=== PATIENT | female | born 1940 | race Caucasian/White ===

== ENCOUNTER 2019-04-11 12:35 | Outpatient (RCR) | payer MEDICARE, SELFPAY | END 2019-04-28 23:59 | disposition home or self-care (01) | LOC: CR 12:35 | PROVIDERS: Family Provider Family Medicine; PCP Family Medicine; Referring Provider Internal Medicine Cardiovascular Disease; Visit Provider Family Medicine | DX: I35.0 Nonrheumatic aortic (valve) stenosis (principal) | CPT/HCPCS: 93798 ==

== ENCOUNTER 2019-04-29 | Outpatient (RCR) | payer MEDICARE, SELFPAY | END 2019-05-27 17:00 | disposition home or self-care (01) | LOC: CR | PROVIDERS: Family Provider Family Medicine; PCP Family Medicine; Visit Provider Family Medicine | DX: I35.0 Nonrheumatic aortic (valve) stenosis (principal) | CPT/HCPCS: 93798 ==

== ENCOUNTER 2019-05-11 12:21 | Outpatient (CLI) | payer MEDICARE, SELFPAY ==
--- NOTE | 2019-05-11 12:45 | USCV_ITS ---
Olinda Zamora Age: 78 Gender: F : 1940 Exam Date: 05/11/2019 12:38 Ordering Phys: Sushil Springer DO Technologist: Dara St [place] [facility] [place]: [place] Risk Factors: None Previous Vascular Surgery: None Right Brachial BP: / Left Brachial BP: / Right Left Velocity (cm/s) Spectral Plaque Velocity (cm/s) Spectral Plaque Syst/Diast Broadening Syst/Diast Broadening 47.30/ 9.20 Prox CCA 51.90 / 9.90 73.50/ 17.10 Mid CCA 37.50 / 7.90 69.20/ 13.70 Distal CCA 33.50 / 6.60 64.10/ 12.00 Prox ICA 26.80 / 8.90 70.90/ 15.40 Mid ICA 30.70 / 9.30 54.70/ 17.90 Distal ICA 70.90 / 23.10 78.60 ECA 53.90 0.97 ICA/CCA 1.37 Antegrade Vertebral Antegrade 59.80/ 15.40 cm/s 38.10/ 8.50 cm/s Tri Subclavian Tri 110.3 106.3 0 0 FINDINGS Mild to moderate diffuse plaques of the right bifurcation and internal carotid artery. Minimal plaques at the left bifurcation Intimal thickening and minimal plaques in the common carotid arteries bilaterally Antegrade flow in the vertebral arteries bilaterally Normal Doppler flow velocities in the external carotid arteries bilaterally CONCLUSIONS Mild to moderate diffuse plaques of the right bifurcation and internal carotid artery. Minimal plaques at the left bifurcation and internal carotid artery No significant stenosis, based on the above findings Dr Abdelrahman Rogel MD FAC (Electronically Signed) Final Date: 11 May 2019 20:15 S
== END 2019-05-11 12:22 | disposition home or self-care (01) ==
LOC: US 12:23
PROVIDERS: Family Provider Family Medicine; PCP Family Medicine; Visit Provider Family Medicine
DX: R42 Dizziness and giddiness (principal); I10 Essential (primary) hypertension; I65.21 Occlusion and stenosis of right carotid artery
CPT/HCPCS: 93880

== ENCOUNTER 2019-06-01 12:40 | Outpatient (RCR) | payer MEDICARE, SELFPAY | END 2019-06-27 23:59 | disposition home or self-care (01) | LOC: CR 12:40 | PROVIDERS: Family Provider Family Medicine; PCP Family Medicine; Referring Provider Internal Medicine Cardiovascular Disease; Visit Provider Family Medicine | DX: I47.1 Supraventricular tachycardia (principal) | CPT/HCPCS: 93798 ==

== ENCOUNTER 2019-08-15 17:33 | Emergency (ER) | payer MEDICARE, SELFPAY ==
[2019-08-15 17:45] VITALS: BP 129/73; PULSE 90; RESP 14; TEMP 36.6; O2SAT 96; BMI 26.4
--- NOTE | 2019-08-15 18:11 | CTR_ITS ---
PROCEDURE INFORMATION: Exam: CT Abdomen And Pelvis With Contrast Exam date and time: 08/15/2019 6:58 PM Age: 78 years old Clinical indication: Abdominal pain; Localized; Right lower quadrant (rlq); Prior surgery; Surgery type: Hysto, gb; Additional info: Abd pain TECHNIQUE: Imaging protocol: Computed tomography of the abdomen and pelvis with intravenous contrast. Radiation optimization: All CT scans at this facility use at least one of these dose optimization techniques: automated exposure control; mA and/or kV adjustment per patient size (includes targeted exams where dose is matched to clinical indication); or iterative reconstruction. Contrast material: OMNI 300; Contrast volume: 95 ml; Contrast route: IV; COMPARISON: CT abdomen pelvis w con* [id number] 12/05/2018 8:09 AM RADIATION DOSE METRICS: Total DLP: 656.36 mGy-cm FINDINGS: Lungs: Mild atelectasis. Liver: Subcentimeter low-density in the tip of the right liver lobe is too small to characterize. Gallbladder and bile ducts: Cholecystectomy. Mild prominence of the intrahepatic and extrahepatic bile ducts is most likely reservoir effect. Pancreas: Normal. No ductal dilation. Spleen: Normal. No splenomegaly. Adrenals: Normal. No mass. Kidneys and ureters: Normal. No hydronephrosis. Stomach and bowel: Diverticulosis of the transverse through sigmoid colon without diverticulitis. The stomach and small bowel are unremarkable. There is a focal region of mesenteric fat stranding along the lateral border of the cecum. Mild asymmetric wall thickening along the adjacent right lateral margin of the cecum. Appendix: The appendix is not visualized. Intraperitoneal space: Unremarkable. No free air. No significant fluid collection. Vasculature: Unremarkable. No abdominal aortic aneurysm. Lymph nodes: Hazy ground-glass opacity in the central mesenteric fat with multiple subcentimeter mesenteric lymph nodes. Bladder: Unremarkable as visualized. Reproductive: The uterus and ovaries are absent. Bones/joints: Unremarkable. No acute fracture. Soft tissues: Unremarkable. CT/CT abdomen pelvis w con* [id number] IMPRESSION: 1. Mild fat stranding adjacent to the cecum with mild wall thickening of the lateral cecum. This could represent focal colitis or possibly diverticulitis. The appendix is not visualized and this is unlikely to represent acute appendicitis. Follow-up colonoscopy is recommended. 2. Stable chronic mesenteric adenitis. Radiation Dose CTDIVOL = (mGy): DLP = 656.36 (mGy-cm)
--- NOTE | 2019-08-15 18:16 | W.ED.ABDPA2 ---
HPI - Abdominal Pain General: Chief Complaint: Abdominal Pain Stated Complaint: abd pain Time Seen by Provider: 08/15/19 17:54 Source: patient Mode of arrival: ambulatory Limitations: no limitations History of Present Illness: HPI narrative: 78-year-old female whose had right lower abdominal pain over the last day. States pain is very sharp in nature and rates it a 6 out of 10. Denies any vomiting but has had some nausea. Denies fever. MD elicited complaint: abdominal pain Onset (ago): hour(s) Location: RLQ Severity: moderate Quality: sharp Radiation: RLQ Migration to: no migration Exacerbating factors: nothing Relieving factors: nothing Associated Symptoms: Reports nausea; Denies chills, dysuria and fever(s) Review of Systems Const: Denies: fever(s), chills, body aches or change in appetite Eyes: Denies: blurry vision or eye discomfort ENMT: Denies: throat pain or dental pain Card: Denies: chest pain Resp: Denies: dyspnea GI: Reports: abdominal pain and nausea : Denies: dysuria Musc: Denies: neck pain or back pain Skin/Breast: Denies: rash Neuro: Denies: headache(s) Psych: Denies: depression Jose/Lymph: Denies: easy bruising All/Imm: Denies: urticaria PFSH ED PFSH: Medical History Aortic stenosis history of AVR at [facility] 02/28/19 CAD (coronary artery disease) Diverticulosis Gastritis GERD (gastroesophageal reflux disease) HTN (hypertension) UTI (urinary tract infection) Family History Father Cancer Social History Smoking and tobacco status: never smoked Alcohol intake: never Household members: spouse Physical Exam Const: COMMON NORMALS: no acute distress, patient oriented x3 and healthy appearing HENMT: COMMON NORMALS: normocephalic and atraumatic HEAD & SCALP: normocephalic and atraumatic Eye: COMMON NORMALS: Equal, round and reactive pupils present and EOMs intact bilaterally PUPIL: Yes Equal, round and reactive pupils present Neck/C-Spine: COMMON NORMALS: full ROM and supple Chest: COMMONS NORMALS: normal inspection of the chest and normal palpation of entire chest wall Resp: COMMON NORMALS: normal respiratory effort, No retractions, No use of accessory muscles and clear to auscultation bilaterally AUSCULTATION: clear to auscultation bilaterally Cardio: COMMON NORMALS: regular rate, regular rhythm and No murmurs present (Cardio) RATE: regular rate RHYTHM: regular rhythm GI: COMMON NORMALS: Normal to inspection, nondistended, normoactive bowel sounds present, Soft to palpation and no masses PALPATION: Yes Soft to palpation and Yes Tenderness to palpation present (GI) Details: RLQ Extremity: COMMON NORMALS: normal to inspection and full ROM Neuro: COMMON NORMALS: patient oriented x3, moves all extremities and no focal motor deficits Psych: COMMON NORMALS: mental status grossly normal, Normal thought process present and cooperative THOUGHT PROCESS: Normal thought process present Skin: COMMON NORMALS: no rashes or lesions noted and no wounds GENERAL SKIN EXAM: no rashes or lesions noted Course Vital Signs: Vital signs: Vital Signs Temperature 97.9 F 08/15/19 17:45 Pulse Rate 90 08/15/19 17:45 Respiratory Rate 15 08/15/19 18:45 Blood Pressure 129/73 08/15/19 17:45 Pulse Oximetry 96 08/15/19 17:45 MDM - Abdominal Pain MDM Narrative: Medical decision making narrative: Patient presents with abdominal pain and CT showed colitis versus diverticulitis. No signs appendicitis. Patient's vital signs and blood work here is normal and she does not have an elevated white count. Her pain is improved and will start her on Augmentin along with pain meds for home. She is to follow-up with her primary care doctor in 3 to 5 days return to the ER if her pain worsens or she has a fever. She understands and agrees the plan. Lab Data: Labs: Lab Results 08/15/19 08/15/19 08/15/19 Range/Units 18:28 18:28 19:20 WBC 6.9 (4.0-10.0) 10^3/ uL RBC 4.85 (4.1-5.3) 10^6/u L Hgb 14.3 (11.5-15.3) g/dL Hct 43.6 (37.0-47.0) % MCV 89.9 (81-99) fL MCH 29.5 (28.0-34.0) pg MCHC 32.8 (30.0-36.0) g/dL RDW 14.6 (12.1-15.1) % Plt Count 312 (130-400) 10^3/c mm MPV 9.3 (7.4-10.4) fL Neut % (Auto) 59.3 % Lymph % (Auto) 27.1 % [place] % (Auto) 10.5 % Eos % (Auto) 1.7 % Baso % (Auto) 1.3 % Neut # (Auto) 4.1 (1.8-7.7) 10^3/u L Lymph # (Auto) 1.9 (0.8-4.8) 10^3/u L [place] # (Auto) 0.7 (0.2-0.9) 10^3/u L Eos # (Auto) 0.1 (0.0-0.8) 10^3/u L Baso # (Auto) 0.1 (0.0-0.1) 10^3/u L Nucleated RBC % (a uto) 0 % Nucleated RBCs # 0.0 /100WBC Sodium 142 (136-145) mmol/L Potassium 4.3 (3.5-5.1) mmol/L Chloride 104 (98-107) mmol/L Carbon Dioxide 25 (22-29) mmol/L Anion Gap 17.3 (5-19) BUN 13 (8-23) mg/dL Creatinine 0.8 (0.5-0.9) mg/dL Glucose 115 (65-115) mg/dL Calculated Osmolal ity 291 (285-295) mOsm/k g Calcium 9.2 (8.5-10.5) mg/dL Total Bilirubin 0.2 (0.15-1.2) mg/dL AST 19 (0-32) U/L ALT 14 (0-33) U/L Alkaline Phosphata se 111 H (35-105) IU/L Total Protein 7.3 (6.6-8.7) g/dL Albumin 4.7 (3.5-5.2) g/dL Globulin 2.6 (1.3-4.6) g/dL Lipase 44 (13-60) U/L Urine Color Yellow (Yellow) Urine Appearance Clear (CLEAR) Urine pH 7 (5-7) Ur Specific Gravit y 1.005 (1.005-1.030) Urine Protein Neg (Negative) Urine Glucose (UA) Norm (Normal) Urine Ketones Negative (Negative) Urine Blood Neg (Negative) Urine Nitrate Negative (Negative) Urine Bilirubin Neg (NEGATIVE) Urine Urobilinogen Norm (Negative) mg/dL Ur Leukocyte Elizabeth ase 1+ H (Negative) Urine RBC None (0-2) /hpf Urine WBC 0-4 H (0-5) /hpf Ur Squamous Epith Cells 0-4 H (0-5) Ur Transition Epit h Cell 0-4 /hpf Urine Bacteria Trace (NONE) Imaging Data ^: CT Abd/Pel: Attestation: I personally reviewed and interpreted this imaging study as follows: Radiologist's impression: [place] [address] CT Scan Report Signed Patient: Olinda Zamora Unit #: [id number] : 1940 Age/Sex: 78 / F ADM Date: 08/15/19 Loc: ER Room/Bed: Attending Dr: Ordering Provider/Ordering MD: Juan Jose Ambrose MD Date of Service: 08/15/19 Procedure(s): CT abdomen pelvis w con* [id number] Accession Number(s): [id number] Report Number: [id number] PROCEDURE INFORMATION: Exam: CT Abdomen And Pelvis With Contrast Exam date and time: 08/15/2019 6:58 PM Age: 78 years old Clinical indication: Abdominal pain; Localized; Right lower quadrant (rlq); Prior surgery; Surgery type: Hysto, gb; Additional info: Abd pain TECHNIQUE: Imaging protocol: Computed tomography of the abdomen and pelvis with intravenous contrast. Radiation optimization: All CT scans at this facility use at least one of these dose optimization techniques: automated exposure control; mA and/or kV adjustment per patient size (includes targeted exams where dose is matched to clinical indication); or iterative reconstruction. Contrast material: OMNI 300; Contrast volume: 95 ml; Contrast route: IV; COMPARISON: CT abdomen pelvis w con* [id number] 12/05/2018 8:09 AM RADIATION DOSE METRICS: Total DLP: 656.36 mGy-cm FINDINGS: Lungs: Mild atelectasis. Liver: Subcentimeter low-density in the tip of the right liver lobe is too small to characterize. Gallbladder and bile ducts: Cholecystectomy. Mild prominence of the intrahepatic and extrahepatic bile ducts is most likely reservoir effect. Pancreas: Normal. No ductal dilation. Spleen: Normal. No splenomegaly. Adrenals: Normal. No mass. Kidneys and ureters: Normal. No hydronephrosis. Stomach and bowel: Diverticulosis of the transverse through sigmoid colon without diverticulitis. The stomach and small bowel are unremarkable. There is a focal region of mesenteric fat stranding along the lateral border of the cecum. Mild asymmetric wall thickening along the adjacent right lateral margin of the cecum. Appendix: The appendix is not visualized. Intraperitoneal space: Unremarkable. No free air. No significant fluid collection. Vasculature: Unremarkable. No abdominal aortic aneurysm. Lymph nodes: Hazy ground-glass opacity in the central mesenteric fat with multiple subcentimeter mesenteric lymph nodes. Bladder: Unremarkable as visualized. Reproductive: The uterus and ovaries are absent. Bones/joints: Unremarkable. No acute fracture. Soft tissues: Unremarkable. CT/CT abdomen pelvis w con* [id number] IMPRESSION: 1. Mild fat stranding adjacent to the cecum with mild wall thickening of the lateral cecum. This could represent focal colitis or possibly diverticulitis. The appendix is not visualized and this is unlikely to represent acute appendicitis. Follow-up colonoscopy is recommended. 2. Stable chronic mesenteric adenitis. Discharge Plan Discharge Patient Disposition: Home, Self-Care Clinical Impression: Diverticulitis Abdominal pain Qualifiers: Abdominal location: right lower quadrant Qualified Code(s): R10.31 - Right lower quadrant pain Condition: Stable Prescriptions: [place] 5-325 mg tablet 1 tab PO Q6H PRN (Reason: pain) Qty: 14 RF: 0 Zofran 4 mg tablet 4 mg PO QID PRN (Reason: nausea and vomiting) Qty: 14 RF: 0 Augmentin 875-125 mg tablet 1 tab PO BID Qty: 14 RF: 0 No Action aspirin [Adult Low Dose Aspirin] 81 mg tablet,delayed release (DR/EC) 81 mg PO DAILY RF: 0 docusate sodium [Colace] 100 mg capsule 100 mg PO DAILY PRN (Reason: CONSTIPATON) RF: 0 clonidine HCl 0.1 mg tablet 0.05 mg PO TID PRN (Reason: UNKNOWN) RF: 0 omega-3 fatty acids [Fish Oil Concentrate] 1,000 mg capsule 1,000 mg PO BID RF: 0 coenzyme Q10 100 mg capsule 100 mg PO DAILY RF: 0 amlodipine 5 mg tablet 10 mg PO DAILY RF: 0 multivitamin [Daily Multi-Vitamin] Tablet 1 tab PO DAILY RF: 0 Tylenol 325 mg Tablet 325 mg PO QID PRN (Reason: Pain) RF: 0 losartan 100 mg tablet 100 mg PO DAILY RF: 0 Discharge Orders: Discharge Order (Routine); Ordered 08/15/19 Ordered By: Juan Jose Ambrose Referrals: Sushil Springer DO [Primary Care Provider] - 1-3 days Discharge Diet: Advance as tolerated Discharge Activity: Resume usual activity Patient Instructions: Diverticulitis (ED), Abdominal Pain (ED) Coding Level of Care Code ED Door Manager for Brett Fwliz Exam Comprehensive
[2019-08-15 18:41] LABS: Basophils # 0.1 10^3/uL (0.0-0.1); Basophils % 1.3 %; Eosinophils # 0.1 10^3/uL (0.0-0.8); Eosinophils % 1.7 %; Hematocrit 43.6 % (37.0-47.0); Hemoglobin 14.3 g/dL (11.5-15.3); Lymphocytes # 1.9 10^3/uL (0.8-4.8); Lymphocytes % 27.1 %; Mean Corpuscular HGB Conc 32.8 g/dL (30.0-36.0); Mean Corpuscular Hemoglobin 29.5 pg (28.0-34.0); Mean Corpuscular Volume 89.9 fL (81-99); Mean Platelet Volume 9.3 fL (7.4-10.4); Monocytes # 0.7 10^3/uL (0.2-0.9); Monocytes % 10.5 %; Neutrophils # 4.1 10^3/uL (1.8-7.7); Neutrophils % 59.3 %; Nucleated Red Blood Cells % 0 %; Platelet Count 312 10^3/cmm (130-400); Red Blood Count 4.85 10^6/uL (4.1-5.3); Red Cell Distribution Width 14.6 % (12.1-15.1); White Blood Count 6.9 10^3/uL (4.0-10.0)
[2019-08-15 18:45] VITALS: RESP 15
[2019-08-15] MEDS: ondansetron 2 mg/ML SDV 2 mL 4 MG IVP (18:45)
[2019-08-15] MEDS: morphine 4 mg/mL SDV 1 mL IVP (18:45)
[2019-08-15] MEDS: sodium chloride 0.9% 1,000 ML 999 ML IV (18:46)
[2019-08-15 18:57] LABS: Alanine Aminotransferase 14 U/L (0-33); Albumin Level 4.7 g/dL (3.5-5.2); Alkaline Phosphatase 111 IU/L (35-105); Anion Gap 17.3 (5-19); Aspartate Amino Transferase 19 U/L (0-32); Blood Urea Nitrogen 13 mg/dL (8-23); Calcium 9.2 mg/dL (8.5-10.5); Carbon Dioxide 25 mmol/L (22-29); Chloride 104 mmol/L (98-107); Globulin 2.6 g/dL (1.3-4.6); Glucose 115 mg/dL (65-115); Lipase 44 U/L (13-60); Osmolality Calculated 291 mOsm/kg (285-295); Potassium 4.3 mmol/L (3.5-5.1); Sodium 142 mmol/L (136-145); Total Bilirubin 0.2 mg/dL (0.15-1.2); Total Protein 7.3 g/dL (6.6-8.7)
[2019-08-15] MEDS: iohexol 300 mg/mL 100 mL Btl IV (19:42)
[2019-08-15 19:52] LABS: Add Urine Microscopic? YES; Bilirubin Urine Neg (NEGATIVE); Blood Urine Neg (Negative); Glucose Urine UA Norm (Normal); Ketones Urine Negative (Negative); Leukocyte Esterase Urine 1+ (Negative); Nitrate Urine Negative (Negative); Protein Urine Neg (Negative); Specific Gravity, Urine 1.005 (1.005-1.030); Urine Appearance Clear (CLEAR); Urine Color Yellow (Yellow); Urobilinogen Urine Norm (Negative); pH Urine 7 (5-7)
[2019-08-15 19:54] LABS: Add Urine Culture? No; Bacteria Urine TRACE; Squamous Epithelial Cell Urine 0-4 (0-5); Transitional Epi Cells Urine 0-4 /hpf; WBC Urine 0-4 /hpf (0-5)
[2019-08-15 20:36] VITALS: BP 168/80; PULSE 75; RESP 16; O2SAT 96
== END 2019-08-15 20:38 | disposition home or self-care (01) ==
PROVIDERS: Emergency Provider Emergency Medicine; PCP Family Medicine
DX: K57.92 Diverticulitis of intestine, part unspecified, without perforation or abscess without bleeding (principal); Z79.82 Long term (current) use of aspirin; I25.10 Atherosclerotic heart disease of native coronary artery without angina pectoris; I10 Essential (primary) hypertension; K21.9 Gastro-esophageal reflux disease without esophagitis
CPT/HCPCS: 12345; 36415; 74177; 80053; 81001; 83690; 85025; 96361; 96374; 96375; 99283; J2270; J2405; J7030; Q9967

== ENCOUNTER 2019-09-14 14:45 | Outpatient (CLI) | payer MEDICARE, SELFPAY ==
--- NOTE | 2019-09-14 14:51 | USCV_ITS ---
Olinda Zamora Age: 78 Gender: F : 1940 Exam Date: 09/14/2019 15:11 Ordering Phys: Aliya Diane DO Technologist: Mary Paige Exam Location: [facility] [place] Indication: AORTIC STENOSIS BOVINE AO BP: / HR: 75 Rhythm: Sinus Technical Quality: Fair MEASUREMENTS (Male / Female) Normal Values 2D ECHO LV Diastolic Diameter PLAX 4.6 cm 4.2 - 5.9 / 3.9 - 5.3 cm LV Systolic Diameter PLAX 3.5 cm LV Chamber Size 4.4 cm IVS Diastolic Thickness 0.7 cm 0.6 - 1.0 / 0.6 - 0.9 cm IVS Systolic Thickness 0.9 cm LVPW Diastolic Thickness 0.6 cm 0.6 - 1.0 / 0.6 - 0.9 cm LVPW Systolic Thickness 0.8 cm RV Chamber Size 3.0 cm LVOT Diameter 2.0 cm LV Ejection Fraction 2D Teich 47.2 % LA Diameter 2.6 cm LA Width 3.0 cm LA Height 3.5 cm RA Width 3.1 cm RA Height 4.1 cm Aorta at Sinotubular Diameter 2.3 cm M-MODE LV Diastolic Diameter MM 5.0 cm 4.2 - 5.9 / 3.9 - 5.3 cm LV Systolic Diameter MM 3.4 cm LV Ejection Fraction MM Teich 60.8 % IVS Diastolic Thickness MM 0.9 cm 0.6 - 1.0 / 0.6 - 0.9 cm IVS Systolic Thickness MM 1.0 cm LVPW Diastolic Thickness MM 0.8 cm 0.6 - 1.0 / 0.6 - 0.9 cm LVPW Systolic Thickness MM 1.4 cm RV Diastolic Diameter MM 0.9 cm Aortic Annulus Diameter 2.7 cm LA Ao Ratio MM 1.0 MV E Point Septal Separation 0.5 cm DOPPLER AV Peak Velocity 239.0 cm/s LVOT Peak Velocity 108.0 cm/s AV Area Cont Eq vti 1.2 cm squared AV Area Cont Eq pk 1.4 cm squared MV Area PHT 2.4 cm squared Mitral E to A Ratio 0.6 MV E' Velocity 9.0 cm/s Mitral E to MV E' Ratio 9.2 Mitral E to LV E' Lateral Ratio 8.4 Mitral E to LV E' Septal Ratio 10.3 TR Peak Velocity 264.9 cm/s TR Peak Gradient 28.1 mmHg TR Mean Velocity 193.9 cm/s TR Mean Gradient 16.6 mmHg TR Velocity Time Integral 65.4 cm TV Peak E Velocity 66.0 cm/s Right Atrial Pressure 3.0 mmHg Pulmonary Artery Systolic Pressu 31.1 mmHg PV Peak Velocity 75.0 cm/s FINDINGS Left Ventricle Normal left ventricular cavity size. No regional wall motion abnormalities. Normal left ventricular systolic function. Left ventricular ejection fraction is estimated at 60 %. Grade I/IV diastolic dysfunction (abnormal relaxation filling pattern), normal to mildly elevated filling pressures. Right Ventricle The right ventricle is normal in size and function. Right Atrium The right atrium is normal in size. Left Atrium The left atrium is normal in size. Mitral Valve Moderately thickened mitral valve. Mild mitral annular calcification. No mitral valve stenosis. Trace mitral valve regurgitation. Aortic Valve There appeared to be bioprosthetic valve sitting in a normal position and working normally without significant valvular or paravalvular leak. Tricuspid Valve Structurally normal tricuspid valve without significant stenosis or regurgitation. Pulmonary artery systolic pressure is normal. Pulmonic Valve Structurally normal pulmonic valve without significant stenosis. There is no pulmonic regurgitation. Pericardium Normal pericardium without effusion. Aorta Normal ascending aorta dimension. CONCLUSIONS 1-Normal left ventricular cavity size. No regional wall motion abnormalities. Normal left ventricular systolic function. Left ventricular ejection fraction is estimated at 60 %. Grade I/IV diastolic dysfunction (abnormal relaxation filling pattern), normal to mildly elevated filling pressures. 2-Moderately thickened mitral valve. Mild mitral annular calcification. No mitral valve stenosis. Trace mitral valve regurgitation. 3-There appeared to be bioprosthetic valve sitting in a normal position and working normally without significant valvular or paravalvular leak. 4-There is no pericardial effusion. 5-Pulmonary artery systolic pressure is within normal limits. 6-Right atrial pressure is around 5 mm of mercury. 7-when compared to the prior echocardiogram dated 11/25/2018 there is a bioprosthetic aortic valve sitting in a normal position and working normally. Sushant Jaffe MD (Electronically Signed) Final Date: 17 September 2019 12:56 S
== END 2019-09-14 14:46 | disposition home or self-care (01) ==
LOC: RAD 14:49
PROVIDERS: PCP Family Medicine; Visit Provider Family Medicine
DX: Z95.2 Presence of prosthetic heart valve (principal); I35.0 Nonrheumatic aortic (valve) stenosis; I05.9 Rheumatic mitral valve disease, unspecified
CPT/HCPCS: 93306

== ENCOUNTER → 2020-01-18 12:56 | Outpatient (BNVA) | payer MEDICARE, SELFPAY | PROVIDERS: PCP Family Medicine; Visit Provider Family Medicine | DX: I10 Essential (primary) hypertension (principal); H61.23 Impacted cerumen, bilateral; I35.0 Nonrheumatic aortic (valve) stenosis; L82.1 Other seborrheic keratosis; H81.10 Benign paroxysmal vertigo, unspecified ear | CPT/HCPCS: 80048 ==

== ENCOUNTER 2020-01-29 09:28 | Emergency (ER) | payer MEDICARE, SELFPAY ==
[2020-01-29 09:31] VITALS: BP 131/77; PULSE 84; RESP 18; TEMP 36.6; O2SAT 99; BMI 26.4
--- NOTE | 2020-01-29 10:06 | CT_ITS ---
WS: [id number] CT CERVICAL SPINE TECHNIQUE: Noncontrast CT of the cervical spine with coronal and sagittal reformatted images. CLINICAL INFORMATION: neck pain with L arm radiculopathy COMPARISON: None. DLP: 329.[address] scans at [facility] use at least one of these dose optimization techniques: automat ed exposure control; mA and/or kV adjustment per patient size (includes targeted exams where dose is matched to clinical indication); or iterative reconstruction. FINDINGS: Straightening of the normal cervical lordosis. Slight anterolisthesis C3 on C4 and C4 on C5. No high- grade central canal stenosis. C2-C3: Normal. C3-C4: Small central disc protrusion. Mild central canal stenosis. Moderate left foraminal narrowing. Moderate left facet arthropathy. C4-C5: Small central disc osteophyte complex with mild central canal stenosis and slight contact of t he cervical cord. Moderate left foraminal narrowing. Right foramen is patent. Moderate facet arthropa thy. C5-C6: Shallow central disc osteophyte protrusion with mild central canal stenosis. Moderate left and mild right bony foraminal narrowing. Moderate facet arthropathy. C6-C7: Disc osteophyte complex with endplate ridging. Mild central canal stenosis. Moderate to severe left bony foraminal narrowing. Mild right foraminal narrowing. C7-T1: Osteophytic ridging. Mild left and no significant right foraminal narrowing. Mastoid air cells are well aerated Visualized posterior nasopharynx: Normal. Prevertebral soft tissues: Normal. CT/CT cervical spin wo con* [id number] IMPRESSION: 1. Moderate to severe left C6-C7 bony foraminal narrowing. 2. Mild central canal stenosis C3-C4 C4-C5 and C5-C6 due to small central disc osteophyte protrusions. 3. Moderate left C3-C4 C4-C5 and C5-C6 bony foraminal narrowing.
--- NOTE | 2020-01-29 10:06 | ECG_ITS ---
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1940 Requested By: Adrien Diaz Order Number: [id number] Reading MD: ESTUARDO TIPTON Measurements Intervals [place] Rate: 62 P: 33 MO: 180 QRS: 7 QRSD: 86 T: 48 QT: 419 QTc: 428 Interpretive Statements SINUS RHYTHM LOW QRS VOLTAGE IN PRECORDIAL LEADS [QRS DEFLECTION < 1.0 mV IN CHEST LEADS] POSSIBLE ANTERIOR MYOCARDIAL INFARCTION , PROBABLY OLD [30 ms Q WAVE IN V3/V4, OR R < 0.2 mV IN V4] Compared to ECG 03/24/2019 20:53:57 Low QRS voltage now present Myocardial infarct finding now present T-wave abnormality no longer present Electronically Signed On 01-29-2020 20:14:56 HISTORY FACULTY MEMBER by ESTUARDO TIPTON [id number]
--- NOTE | 2020-01-29 10:08 | ED_ITS ---
HPI - General Adult General: Chief complaint: General Medical Stated complaint: Pain in Left arm/high bp Time Seen by Provider: 01/29/20 09:34 History of Present Illness: HPI narrative: 79-year-old female presents emergency room with complaint of elevated blood pressure and left arm pain. She correlates her left arm pain as having started when her blood pressure was elevated she also associates some stomach discomfort upset with it. She denies any vomiting diarrhea denies any shortness of breath is not really been any chest pain at home. Her blood pressure at max at home yesterday got up to 162 systolic last night and max of 167 systolic this morning. She took a dose of clonidine in response to that. She has previously had an aortic valve replacement but has not had any known coronary artery disease. She is normotensive at the time she is seen she still complaining of some left arm pain radiating from the shoulder. Onset (ago): hour(s) Location: head, left and upper extremity Severity: severe Quality: burning Pain Consistency: constant Relieving factors: none Exacerbating factors: none Associated symptoms: Deny chest pain, confusion, cough, diaphoresis, decreased appetite, dyspnea, fevers/chills, headache(s), malaise, nausea, rash or vomiting Review of Systems Const: Denies: malaise or diaphoresis ENMT: Denies: throat pain, ear or mastoid pain, nasal discharge or nasal congestion Card: Denies: chest pain Resp: Denies: dyspnea GI: Denies: abdominal pain, nausea, vomiting, hematemesis, coffee ground emesis, diarrhea, constipation, bloating, hematochezia or melena : Denies: flank pain, difficulty voiding, dysuria, urinary frequency or urinary urgency Skin/Breast: Denies: rash or pruritus Neuro: Denies: headache(s) or confusion PFSH ED PFSH: Medical History Aortic stenosis history of AVR at [facility] 02/28/19 Benign positional vertigo CAD (coronary artery disease) Diverticulosis Gastritis GERD (gastroesophageal reflux disease) HTN (hypertension) UTI (urinary tract infection) Family History Father Cancer Social History (Reviewed 02/02/20 @ 06:07 by LISETTE Steel Smoking and tobacco status: never smoked Alcohol intake: never Household members: spouse Physical Exam Const: COMMON NORMALS: no acute distress GENERAL APPEARANCE: cooperative and comfortable ORIENTATION/CONSCIOUSNESS: Yes awake, Yes oriented to person, Yes oriented to place and Yes oriented to time HENMT: COMMON NORMALS: normocephalic, atraumatic and hearing grossly normal bilaterally HEAD & SCALP: normocephalic and atraumatic Neck/C-Spine: COMMON NORMALS: no JVD Resp: COMMON NORMALS: normal respiratory effort, No retractions, No use of a ccessory muscles and clear to auscultation bilaterally AUSCULTATION: clear to auscultation bilaterally Cardio: COMMON NORMALS: no JVD, regular rate, regular rhythm and No murmurs present (Cardio) RATE: regular rate RHYTHM: regular rhythm GI: COMMON NORMALS: Soft to palpation and No hepatosplenomegaly present AUSCULTATION: Yes normoactive bowel sounds PALPATION: Yes Soft to palpation, No Tenderness to palpation present (GI), No Guarding due to palpation present (GI) and Yes No hepatosplenomegaly present Extremity: COMMON NORMALS: normal to inspection, capillary refill normal, no clubbing, cyanosis or edema, no calf tenderness and no pedal edema Neuro: SENSORIUM/ORIENTATION: Yes oriented to person, Yes oriented to place and Yes oriented to time OTHER: Diminished sensation in the C6 nerve distribution on the left. Deep tendon reflexes diminished at the triceps and biceps on the left. 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 Treated with steroids pain control muscle relaxers follow-up with primary care for evaluation for further imaging. Blood pressure is normotensive for the most part when here no changes her blood pressure medications at this time. Lab Data: Labs: Lab Results 01/29/20 01/29/20 01/29/20 Range/Units 10:13 10:13 10:13 WBC 5.1 (4.0-10.0) 10^3/ uL RBC 4.67 (4.1-5.3) 10^6/u L Hgb 13.9 (11.5-15.3) g/dL Hct 42.8 (37.0-47.0) % MCV 91.6 (81-99) fL MCH 29.8 (28.0-34.0) pg MCHC 32.5 (30.0-36.0) g/dL RDW 13.8 (12.1-15.1) % Plt Count 267 (130-400) 10^3/c mm MPV 9.4 (7.4-10.4) fL Neut % (Auto) 63.8 % Lymph % (Auto) 24.1 % Tyrrell % (Auto) 8.9 % Eos % (Auto) 1.4 % Baso % (Auto) 1.6 % Neut # (Auto) 3.23 (1.8-7.7) 10^3/u L Lymph # (Auto) 1.2 (0.8-4.8) 10^3/u L Tyrrell # (Auto) 0.5 (0.2-0.9) 10^3/u L Eos # (Auto) 0.1 (0.0-0.8) 10^3/u L Baso # (Auto) 0.1 (0.0-0.1) 10^3/u L Nucleated RBC % (a uto) 0 % Nucleated RBCs # 0.0 /100WBC Sodium 136 (136-145) mmol/L Potassium 4.0 (3.5-5.1) mmol/L Chloride 101 (98-107) mmol/L Carbon Dioxide 24 (22-29) mmol/L Anion Gap 15.0 (5-19) BUN 12 (8-23) mg/dL Creatinine 1.0 H (0.5-0.9) mg/dL GFR Calculation Not Reportable Glucose 122 H (65-115) mg/dL Calculated Osmolal ity 283 L (285-295) mOsm/k g Calcium 9.4 (8.5-10.5) mg/dL Troponin T Baselin e 6 (0-10) ng/L Troponin T 120 Min adriana (0-10) ng/L Delta Troponin T (0-10) ABS# 01/29/20 Range/Units 11:53 WBC (4.0-10.0) 10^3/ uL RBC (4.1-5.3) 10^6/u L Hgb (11.5-15.3) g/dL Hct (37.0-47.0) % MCV (81-99) fL MCH (28.0-34.0) pg MCHC (30.0-36.0) g/dL RDW (12.1-15.1) % Plt Count (130-400) 10^3/c mm MPV (7.4-10.4) fL Neut % (Auto) % Lymph % (Auto) % Tyrrell % (Auto) % Eos % (Auto) % Baso % (Auto) % Neut # (Auto) (1.8-7.7) 10^3/u L Lymph # (Auto) (0.8-4.8) 10^3/u L Tyrrell # (Auto) (0.2-0.9) 10^3/u L Eos # (Auto) (0.0-0.8) 10^3/u L Baso # (Auto) (0.0-0.1) 10^3/u L Nucleated RBC % (a uto) % Nucleated RBCs # /100WBC Sodium (136-145) mmol/L Potassium (3.5-5.1) mmol/L Chloride (98-107) mmol/L Carbon Dioxide (22-29) mmol/L Anion Gap (5-19) BUN (8-23) mg/dL Creatinine (0.5-0.9) mg/dL GFR Calculation Glucose (65-115) mg/dL Calculated Osmolal ity (285-295) mOsm/k g Calcium (8.5-10.5) mg/dL Troponin T Baselin e (0-10) ng/L Troponin T 120 Min adriana 6.00 (0-10) ng/L Delta Troponin T 0 (0-10) ABS# Discharge Plan Discharge Patient Disposition: Home Clinical Impression: Cervical radicular pain, HTN (hypertension) Condition: Stable Prescriptions: New hydrocodone-acetaminophen 5-325 mg tablet 1 tab PO Q6H PRN (Reason: pain) Qty: 10 RF: 0 Medrol (Warren) 4 mg tablets,dose pack See Rx Instructions .ROUTE .COMPLEX Qty: 21 RF: 0 tizanidine 2 mg capsule 2 mg PO Q8H PRN (Reason: muscle spasticity) Qty: 20 RF: 0 No Action aspirin [Adult Low Dose Aspirin] 81 mg tablet,delayed release (DR/EC) 81 mg PO DAILY RF: 0 docusate sodium [Colace] 100 mg capsule 100 mg PO DAILY PRN (Reason: CONSTIPATON) RF: 0 clonidine HCl 0.1 mg tablet 0.1 mg PO TID PRN (Reason: Blood Pressure) RF: 0 omega-3 fatty acids [Fish Oil Concentrate] 1,000 mg capsule 1,000 mg PO DAILY RF: 0 coenzyme Q10 100 mg capsule 100 mg PO DAILY RF: 0 amlodipine 5 mg tablet 10 mg PO DAILY RF: 0 multivitamin [Daily Multi-Vitamin] Tablet 1 tab PO DAILY RF: 0 acetaminophen [Tylenol] 325 mg Tablet 325 mg PO QID PRN (Reason: Pain) RF: 0 losartan 100 mg tablet 100 mg PO DAILY RF: 0 Discharge Orders: Discharge Order (Routine); Ordered 01/29/20 Ordered By: Adrien Flores Referrals: Aliya Diane DO [Primary Care Provider] - Discharge Diet: Usual diet Discharge Activity: Limit activity as instructed Activity Restrictions/Additional Instructions: Aloe up with your primary care doctor as soon as you are able to arrange for further imaging of the neck Discharge Date/Time: 01/29/20 13:11 Coding Level of Care Code ED Chipper Feeder for Brett Aj
[2020-01-29 10:15] VITALS: BP 106/59; PULSE 66; RESP 17; O2SAT 93
[2020-01-29 10:20] LABS: Basophils # 0.1 10^3/uL (0.0-0.1); Basophils % 1.6 %; Eosinophils # 0.1 10^3/uL (0.0-0.8); Eosinophils % 1.4 %; Hematocrit 42.8 % (37.0-47.0); Hemoglobin 13.9 g/dL (11.5-15.3); Lymphocytes # 1.2 10^3/uL (0.8-4.8); Lymphocytes % 24.1 %; Mean Corpuscular HGB Conc 32.5 g/dL (30.0-36.0); Mean Corpuscular Hemoglobin 29.8 pg (28.0-34.0); Mean Corpuscular Volume 91.6 fL (81-99); Mean Platelet Volume 9.4 fL (7.4-10.4); Monocytes # 0.5 10^3/uL (0.2-0.9); Monocytes % 8.9 %; Neutrophils # 3.23 10^3/uL (1.8-7.7); Neutrophils % 63.8 %; Nucleated Red Blood Cells % 0 %; Platelet Count 267 10^3/cmm (130-400); Red Blood Count 4.67 10^6/uL (4.1-5.3); Red Cell Distribution Width 13.8 % (12.1-15.1); White Blood Count 5.1 10^3/uL (4.0-10.0)
[2020-01-29 10:44] LABS: Blood Urea Nitrogen 12 mg/dL (8-23); Calcium 9.4 mg/dL (8.5-10.5); Carbon Dioxide 24 mmol/L (22-29); Chloride 101 mmol/L (98-107); Glucose 122 mg/dL (65-115); Osmolality Calculated 283 mOsm/kg (285-295); Sodium 136 mmol/L (136-145); Troponin(5th) Baseline 6 ng/L (0-10)
[2020-01-29 11:28] VITALS: BP 110/65; PULSE 55; RESP 17; O2SAT 96
--- NOTE | 2020-01-29 12:06 | ECG_ITS ---
[facility] Test Date: 2020-01-29 Pat Name: Olinda Zmaora Department: Room: Gender: Female Political Researcher: : 1940 Requested By: Adrien Diaz Order Number: [id number] Reading MD: ESTUARDO TIPTON Measurements Intervals [place] Rate: 59 P: 33 DE: 189 QRS: 11 QRSD: 73 T: 44 QT: 412 QTc: 408 Interpretive Statements SINUS BRADYCARDIA LOW QRS VOLTAGE IN PRECORDIAL LEADS [QRS DEFLECTION < 1.0 mV IN CHEST LEADS] ANTEROSEPTAL MYOCARDIAL INFARCTION , OF INDETERMINATE AGE [40+ ms Q WAVE IN V1-V4] Compared to ECG 01/29/2020 10:21:02 Sinus rhythm no longer present Myocardial infarct finding still present Electronically Signed On 01-29-2020 20:16:03 RUSTIC FENCE BUILDER by ESTUARDO TIPTON [id number]
[2020-01-29 12:23] LABS: Troponin 5 2HR Delta 0 ABS# (0-10)
[2020-01-29 13:10] VITALS: BP 118/63; PULSE 57; RESP 18; O2SAT 94
== END 2020-01-29 13:11 | disposition home or self-care (01) ==
PROVIDERS: Emergency Provider Family Medicine; PCP Family Medicine
DX: I10 Essential (primary) hypertension (principal); M54.12 Radiculopathy, cervical region; Z79.82 Long term (current) use of aspirin; I25.10 Atherosclerotic heart disease of native coronary artery without angina pectoris
CPT/HCPCS: 12345; 72125; 80048; 84484; 85025; 93005; 99283

== ENCOUNTER 2020-04-29 14:48 | Emergency (ER) | payer MEDICARE, SELFPAY ==
[2020-04-29 15:26] VITALS: BP 162/88; PULSE 87; RESP 14; TEMP 36.7; O2SAT 96; BMI 25.7
--- NOTE | 2020-04-29 16:38 | ECG_ITS ---
[facility] Test Date: 2020-04-29 Pat Name: Olinda Zamora Department: Room: Gender: Female Freight Booker: MELISSA : 1940 Requested By: Moe Marie Order Number: [id number] Harvey MD: Abdi Herndon M.D. Measurements Intervals [place] Rate: 70 P: 33 WI: 184 QRS: -2 QRSD: 80 T: 58 QT: 366 QTc: 397 Interpretive Statements SINUS RHYTHM POSSIBLE LEFT ATRIAL ENLARGEMENT [-0.1mV P WAVE IN V1/V2] LOW QRS VOLTAGE IN PRECORDIAL LEADS [QRS DEFLECTION < 1.0 mV IN CHEST LEADS] NONSPECIFIC ST & T-WAVE ABNORMALITY Compared to ECG 01/29/2020 12:15:23 T-wave abnormality now present Sinus bradycardia no longer present Myocardial infarct finding no longer present Electronically Signed On 04-29-2020 18:52:04 SUPERVISOR TESTING by Abdi Herndon M.D. [id number]
[2020-04-29 17:50] VITALS: BP 167/121; PULSE 74; RESP 16; O2SAT 98
--- NOTE | 2020-04-29 18:18 | PC.NURSE ---
Read and agree with assessment.
--- NOTE | 2020-04-29 18:20 | XRR_ITS ---
PROCEDURE INFORMATION: Exam: XR Chest, 1 View Exam date and time: 04/29/2020 6:26 PM Age: 79 years old Clinical indication: Other: Abdomen pain; Prior surgery; Surgery type: Valve replacement; Additional info: Cp TECHNIQUE: Imaging protocol: XR of the chest Views: 1 view. COMPARISON: CR Chest 1 [place] [id number] 03/24/2019 2:56 AM FINDINGS: Lungs: Mild platelike atelectasis versus scarring adjacent to the left heart border. Lungs are otherwise well aerated. Pleural spaces: Unremarkable. No pleural effusion. No pneumothorax. Heart/Mediastinum: Unremarkable. No cardiomegaly. Bones/joints: Unremarkable. XR/XR chest 1V portable [id number] IMPRESSION: Mild platelike atelectasis versus scarring adjacent to the left heart border. Lungs are otherwise well aerated.
--- NOTE | 2020-04-29 18:20 | CTR_ITS ---
PROCEDURE INFORMATION: Exam: CT Abdomen And Pelvis With Contrast Exam date and time: 04/29/2020 8:21 PM Age: 79 years old Clinical indication: Abdominal pain; Other: Right side abd pain; Prior surgery; Surgery type: Hyst, gb TECHNIQUE: Imaging protocol: Computed tomography of the abdomen and pelvis with contrast. Radiation optimization: All CT scans at this facility use at least one of these dose optimization techniques: automated exposure control; mA and/or kV adjustment per patient size (includes targeted exams where dose is matched to clinical indication); or iterative reconstruction. Contrast material: OMNI 300; Contrast volume: 95 ml; Contrast route: INTRAVENOUS (IV); COMPARISON: CT abdomen pelvis w con* [id number] 08/15/2019 7:38 PM RADIATION DOSE METRICS: Total DLP (mGy-cm): 486.35 FINDINGS: Lungs: Scarring and/or atelectasis in the medial segment of the right middle lobe. Liver: Normal. No mass. Gallbladder and bile ducts: Stable cholecystectomy. Continued dilatation of the intra-and extrahepatic biliary tree which can be normal following cholecystectomy. Pancreas: Stable central mesenteric fat edema with extensive differential diagnosis including but not limited to pancreatitis, portal hypertension, infectious process, autoimmune/allergic process or neoplastic process. Spleen: One or more stable accessory splenules. Adrenal glands: Normal. No mass. Kidneys and ureters: Normal. No hydronephrosis. Stomach and bowel: Severe sigmoid colonic diverticulosis. Appendix: No evidence of appendicitis. Intraperitoneal space: Unremarkable. No free air. No significant fluid collection. Vasculature: Calcification of the abdominal aorta and/or iliac arteries consistent with atherosclerotic vessel disease. Lymph nodes: Unremarkable. No enlarged lymph nodes. Urinary bladder: Unremarkable as visualized. Reproductive: Stable hysterectomy. Bones/joints: Mild to moderate multilevel spine degenerative changes including degenerative disc disease, spondylosis and facet degenerative changes. Soft tissues: Unremarkable. Other findings: Stable aortic valve replacement. CT/CT abdomen pelvis w con* [id number] IMPRESSION: 1. Continued dilatation of the intra-and extrahepatic biliary tree which can be normal following cholecystectomy. 2. Stable central mesenteric fat edema with extensive differential diagnosis including but not limited to pancreatitis, portal hypertension, infectious process, autoimmune/allergic process or neoplastic process. 3. Severe sigmoid colonic diverticulosis. Radiation Dose CTDIVOL = (mGy): DLP = 486.35 (mGy-cm)
[2020-04-29 18:25] LABS: Basophils # 0.1 10^3/uL (0.0-0.1); Basophils % 1.2 %; Eosinophils # 0.1 10^3/uL (0.0-0.8); Eosinophils % 0.7 %; Hematocrit 42.8 % (37.0-47.0); Hemoglobin 14.1 g/dL (11.5-15.3); Lymphocytes # 1.8 10^3/uL (0.8-4.8); Mean Corpuscular HGB Conc 32.9 g/dL (30.0-36.0); Mean Corpuscular Volume 91.1 fL (81-99); Mean Platelet Volume 9.6 fL (7.4-10.4); Monocytes # 0.6 10^3/uL (0.2-0.9); Monocytes % 8.7 %; Neutrophils # 4.36 10^3/uL (1.8-7.7); Neutrophils % 63.1 %; Nucleated Red Blood Cells % 0 %; Platelet Count 315 10^3/cmm (130-400); Red Cell Distribution Width 13.8 % (12.1-15.1); White Blood Count 6.9 10^3/uL (4.0-10.0)
--- NOTE | 2020-04-29 18:27 | W.ED.ABDPA2 ---
HPI - Abdominal Pain General: Chief Complaint: Abdominal Pain Stated Complaint: UPPER ABD PAIN, HTN Time Seen by Provider: 04/29/20 17:55 Source: patient Mode of arrival: ambulatory Limitations: no limitations History of Present Illness: HPI narrative: 79-year-old female who states she has been having some diffuse abdominal pain over the last 2 to 3 days. States been cramping in nature. She states that she noticed her blood pressure was high today into the 170s and 180s. She states that her abdominal pain currently is a 7 out of 10 is unsure if the pain is causing her hypertension. She states she had a slight chest pain is since resolved. Denies any worsening improving factors. Denies any vomiting or diarrhea. Associated Symptoms: Denies chills, diarrhea, dysuria, fever(s), nausea and vomiting Review of Systems Const: Denies: fever(s), chills, body aches or change in appetite Eyes: Denies: blurry vision or eye discomfort ENMT: Denies: throat pain or dental pain Card: Reports: chest pain Resp: Denies: dyspnea GI: Reports: abdominal pain; Denies: nausea, vomiting or diarrhea : Denies: dysuria Musc: Denies: neck pain or back pain Skin/Breast: Denies: rash Neuro: Denies: headache(s) Psych: Denies: depression Jose/Lymph: Denies: easy bruising All/Imm: Denies: urticaria PFSH ED PFSH: Medical History Aortic stenosis history of AVR at [facility] 02/28/19 Benign positional vertigo CAD (coronary artery disease) Cervical radiculopathy due to degenerative joint disease of spine Diverticulosis Gastritis GERD (gastroesophageal reflux disease) HTN (hypertension) UTI (urinary tract infection) Family History Father Cancer Social History Smoking and tobacco status: never smoked Alcohol intake: never Household members: spouse Physical Exam Const: COMMON NORMALS: no acute distress, patient oriented x3 and healthy appearing HENMT: COMMON NORMALS: normocephalic and atraumatic HEAD & SCALP: normocephalic and atraumatic Eye: COMMON NORMALS: Equal, round and reactive pupils present and EOMs intact bilaterally PUPIL: Yes Equal, round and reactive pupils present Neck/C-Spine: COMMON NORMALS: full ROM and supple Chest: COMMONS NORMALS: normal inspection of the chest and normal palpation of entire chest wall Resp: COMMON NORMALS: normal respiratory effort, No retractions, No use of accessory muscles and clear to auscultation bilaterally AUSCULTATION: clear to auscultation bilaterally Cardio: COMMON NORMALS: regular rate, regular rhythm and No murmurs present (Cardio) RATE: regular rate RHYTHM: regular rhythm GI: COMMON NORMALS: Normal to inspection, nondistended, normoactive bowel sounds present, Soft to palpation, non-tender and no masses PALPATION: Yes Soft to palpation Extremity: COMMON NORMALS: normal to inspection and full ROM Neuro: COMMON NORMALS: patient oriented x3, moves all extremities and no focal motor deficits Psych: COMMON NORMALS: mental status grossly normal, Normal thought process present and cooperative THOUGHT PROCESS: Normal thought process present Skin: COMMON NORMALS: no rashes or lesions noted and no wounds GENERAL SKIN EXAM: no rashes or lesions noted Course Vital Signs: Vital signs: Vital Signs Temperature 98.1 F 04/29/20 15:26 Pulse Rate 75 04/29/20 19:10 Respiratory Rate 14 04/29/20 19:44 Blood Pressure 113/64 04/29/20 19:44 Pulse Oximetry 96 04/29/20 19:44 MDM - Abdominal Pain MDM Narrative: Medical decision making narrative: 79-year-old female who presents here with abdominal pain along with hypertension. Her blood pressure here is improved. CT scan here showed no acute findings on the CT. I did go over the CT findings with her and informed her she is to follow-up with PCP in 2 to 4 days. Initial troponin here is negative and screwed refused to 2-hour troponin. She is stable for discharge and return if worsening. She understands and agrees to plan. Lab Data: Labs: Lab Results 04/29/20 04/29/20 04/29/20 Range/Units 18:10 18:10 18:10 WBC 6.9 (4.0-10.0) 10^3/ uL RBC 4.70 (4.1-5.3) 10^6/u L Hgb 14.1 (11.5-15.3) g/dL Hct 42.8 (37.0-47.0) % MCV 91.1 (81-99) fL MCH 30.0 (28.0-34.0) pg MCHC 32.9 (30.0-36.0) g/dL RDW 13.8 (12.1-15.1) % Plt Count 315 (130-400) 10^3/c mm MPV 9.6 (7.4-10.4) fL Neut % (Auto) 63.1 % Lymph % (Auto) 26.0 % [place] % (Auto) 8.7 % Eos % (Auto) 0.7 % Baso % (Auto) 1.2 % Neut # (Auto) 4.36 (1.8-7.7) 10^3/u L Lymph # (Auto) 1.8 (0.8-4.8) 10^3/u L [place] # (Auto) 0.6 (0.2-0.9) 10^3/u L Eos # (Auto) 0.1 (0.0-0.8) 10^3/u L Baso # (Auto) 0.1 (0.0-0.1) 10^3/u L Nucleated RBC % (a uto) 0 % Nucleated RBCs # 0.0 /100WBC Sodium 139 (136-145) mmol/L Potassium 3.6 (3.5-5.1) mmol/L Chloride 107 (98-107) mmol/L Carbon Dioxide 20 L (22-29) mmol/L Anion Gap 15.6 (5-19) BUN 13 (8-23) mg/dL Creatinine 0.7 (0.5-0.9) mg/dL GFR Calculation Not Reportable Glucose 110 (65-115) mg/dL Calculated Osmolal ity 289 (285-295) mOsm/k g Calcium 8.5 (8.5-10.5) mg/dL Total Bilirubin 0.2 (0.15-1.2) mg/dL AST 16 (0-32) U/L ALT 12 (0-33) U/L Alkaline Phosphata se 102 (35-105) IU/L Troponin T Baselin e 7 (0-10) ng/L Total Protein 6.6 (6.6-8.7) g/dL Albumin 4.0 (3.5-5.2) g/dL Globulin 2.6 (1.3-4.6) g/dL Lipase 35 (13-60) U/L Urine Color (Yellow) Urine Appearance (CLEAR) Urine pH (5-7) Ur Specific Gravit y (1.005-1.030) Urine Protein (Negative) Urine Glucose (UA) (Normal) Urine Ketones (Negative) Urine Blood (Negative) Urine Nitrate (Negative) Urine Bilirubin (Negative) Urine Urobilinogen (Negative) mg/dL Ur Leukocyte Elizabeth ase (Negative) Urine RBC (0-2) /hpf Urine WBC (0-5) /hpf Ur Squamous Epith Cells (0-5) /hpf Ur Transition Epit h Cell /hpf Ur Renal Epithelia l Cell /hpf Amorphous Sediment Urine Bacteria (NONE) /hpf 04/29/20 Range/Units 19:50 WBC (4.0-10.0) 10^3/ uL RBC (4.1-5.3) 10^6/u L Hgb (11.5-15.3) g/dL Hct (37.0-47.0) % MCV (81-99) fL MCH (28.0-34.0) pg MCHC (30.0-36.0) g/dL RDW (12.1-15.1) % Plt Count (130-400) 10^3/c mm MPV (7.4-10.4) fL Neut % (Auto) % Lymph % (Auto) % [place] % (Auto) % Eos % (Auto) % Baso % (Auto) % Neut # (Auto) (1.8-7.7) 10^3/u L Lymph # (Auto) (0.8-4.8) 10^3/u L [place] # (Auto) (0.2-0.9) 10^3/u L Eos # (Auto) (0.0-0.8) 10^3/u L Baso # (Auto) (0.0-0.1) 10^3/u L Nucleated RBC % (a uto) % Nucleated RBCs # /100WBC Sodium (136-145) mmol/L Potassium (3.5-5.1) mmol/L Chloride (98-107) mmol/L Carbon Dioxide (22-29) mmol/L Anion Gap (5-19) BUN (8-23) mg/dL Creatinine (0.5-0.9) mg/dL GFR Calculation Glucose (65-115) mg/dL Calculated Osmolal ity (285-295) mOsm/k g Calcium (8.5-10.5) mg/dL Total Bilirubin (0.15-1.2) mg/dL AST (0-32) U/L ALT (0-33) U/L Alkaline Phosphata se (35-105) IU/L Troponin T Baselin e (0-10) ng/L Total Protein (6.6-8.7) g/dL Albumin (3.5-5.2) g/dL Globulin (1.3-4.6) g/dL Lipase (13-60) U/L Urine Color Yellow (Yellow) Urine Appearance Clear (CLEAR) Urine pH 5 (5-7) Ur Specific Gravit y 1.015 (1.005-1.030) Urine Protein Neg (Negative) Urine Glucose (UA) Norm (Normal) Urine Ketones Negative (Negative) Urine Blood Neg (Negative) Urine Nitrate Negative (Negative) Urine Bilirubin Neg (Negative) Urine Urobilinogen Norm (Negative) mg/dL Ur Leukocyte Elizabeth ase Negative (Negative) Urine RBC 0-4 H (0-2) /hpf Urine WBC None (0-5) /hpf Ur Squamous Epith Cells 0-4 H (0-5) /hpf Ur Transition Epit h Cell None /hpf Ur Renal Epithelia l Cell None /hpf Amorphous Sediment Not Reportable Urine Bacteria Trace (NONE) /hpf Imaging Data ^: CT Abd/Pel: Radiologist's impression: [address] [address] [address] Scan Report Signed Patient: Olinda Zamora Unit #: [id number] : 1940 Age/Sex: 79 / F ADM Date: 04/29/20 Loc: ER Room/Bed: Attending Dr: Ordering Provider/Ordering MD: Juan Jose Ambrose MD Date of Service: 04/29/20 Procedure(s): CT abdomen pelvis w con* [id number] Accession Number(s): [id number] Report Number: [id number] PROCEDURE INFORMATION: Exam: CT Abdomen And Pelvis With Contrast Exam date and time: 04/29/2020 8:21 PM Age: 79 years old Clinical indication: Abdominal pain; Other: Right side abd pain; Prior surgery; Surgery type: Hyst, gb TECHNIQUE: Imaging protocol: Computed tomography of the abdomen and pelvis with contrast. Radiation optimization: All CT scans at this facility use at least one of these dose optimization techniques: automated exposure control; mA and/or kV adjustment per patient size (includes targeted exams where dose is matched to clinical indication); or iterative reconstruction. Contrast material: OMNI 300; Contrast volume: 95 ml; Contrast route: INTRAVENOUS (IV); COMPARISON: CT abdomen pelvis w con* [id number] 08/15/2019 7:38 PM RADIATION DOSE METRICS: Total DLP (mGy-cm): 486.35 FINDINGS: Lungs: Scarring and/or atelectasis in the medial segment of the right middle lobe. Liver: Normal. No mass. Gallbladder and bile ducts: Stable cholecystectomy. Continued dilatation of the intra-and extrahepatic biliary tree which can be normal following cholecystectomy. Pancreas: Stable central mesenteric fat edema with extensive differential diagnosis including but not limited to pancreatitis, portal hypertension, infectious process, autoimmune/allergic process or neoplastic process. Spleen: One or more stable accessory splenules. Adrenal glands: Normal. No mass. Kidneys and ureters: Normal. No hydronephrosis. Stomach and bowel: Severe sigmoid colonic diverticulosis. Appendix: No evidence of appendicitis. Intraperitoneal space: Unremarkable. No free air. No significant fluid collection. Vasculature: Calcification of the abdominal aorta and/or iliac arteries consistent with atherosclerotic vessel disease. Lymph nodes: Unremarkable. No enlarged lymph nodes. Urinary bladder: Unremarkable as visualized. Reproductive: Stable hysterectomy. Bones/joints: Mild to moderate multilevel spine degenerative changes including degenerative disc disease, spondylosis and facet degenerative changes. Soft tissues: Unremarkable. Other findings: Stable aortic valve replacement. CT/CT abdomen pelvis w con* [id number] IMPRESSION: 1. Continued dilatation of the intra-and extrahepatic biliary tree which can be normal following cholecystectomy. 2. Stable central mesenteric fat edema with extensive differential diagnosis including but not limited to pancreatitis, portal hypertension, infectious process, autoimmune/allergic process or neoplastic process. 3. Severe sigmoid colonic diverticulosis. EKG Data ^: EKG 1: Attestation: I personally reviewed and interpreted this EKG as follows: EKG interpretation date: 04/29/20 EKG interpretation time: 18:38 Interpretation: nsr hr [address] or t wave abnormalities qrs 76 qtc 422 Discharge Plan Discharge Patient Disposition: Home Clinical Impression: Abdominal pain Qualifiers: Abdominal location: generalized Qualified Code(s): R10.84 - Generalized abdominal pain HTN (hypertension) Qualifiers: Hypertension type: essential hypertension Qualified Code(s): I10 - Essential (primary) hypertension Chest pain Qualifiers: Chest pain type: unspecified Qualified Code(s): R07.9 - Chest pain, unspecified Condition: Stable Prescriptions: No Action aspirin [Adult Low Dose Aspirin] 81 mg tablet,delayed release (DR/EC) 81 mg PO DAILY@0700 RF: 0 clonidine HCl 0.1 mg tablet 0.1 mg PO TID PRN (Reason: Blood Pressure) RF: 0 omega-3 fatty acids [Fish Oil Concentrate] 1,000 mg capsule 1,000 mg PO DAILY@0700 RF: 0 coenzyme Q10 100 mg capsule 100 mg PO DAILY@0700 RF: 0 amlodipine 5 mg tablet 10 mg PO DAILY@0700 RF: 0 multivitamin [Daily Multi-Vitamin] Tablet 1 tab PO DAILY@0700 RF: 0 acetaminophen [Tylenol] 325 mg Tablet 325 mg PO QID PRN (Reason: Pain) RF: 0 losartan 100 mg tablet 100 mg PO DAILY@2000 RF: 0 Metamucil Packet 1 packet PO TID RF: 0 Discharge Orders: Discharge ED (Routine); Ordered 04/29/20 Ordered By: Juan Jose Ambrose Referrals: Aliya Diane DO [Primary Care Provider] - 1-3 days Discharge Diet: Advance as tolerated Discharge Activity: Resume usual activity Patient Instructions: Abdominal Pain (ED), Hypertension (ED) Coding Level of Care Code ED Progressive Assembler And Fitter for Chg Fwd Exam Comprehensive
--- NOTE | 2020-04-29 18:38 | ECG_ITS ---
[facility] Test Date: 2020-04-29 Pat Name: Olinda Zamora Department: Room: Gender: Female [employer] [place] [employer] [place]: : 1940 Requested By: Moe Marie Order Number: [id number] Gabriel MD: Abdi Herndon M.D. Measurements Intervals [place] Rate: 68 P: 38 FL: 176 QRS: 4 QRSD: 76 T: 59 QT: 405 QTc: 432 Interpretive Statements SINUS RHYTHM LOW QRS VOLTAGE IN PRECORDIAL LEADS [QRS DEFLECTION < 1.0 mV IN CHEST LEADS] NONSPECIFIC T-WAVE ABNORMALITY Compared to ECG 04/29/2020 15:24:17 No significant changes Electronically Signed On 04-29-2020 18:52:10 MEAT STOCK CLERK by Abdi Herndon M.D. [id number]
[2020-04-29 18:50] VITALS: BP 132/69; PULSE 76; RESP 14; O2SAT 97
[2020-04-29 18:52] LABS: Troponin(5th) Baseline 7 ng/L (0-10)
[2020-04-29 19:10] VITALS: BP 113/64; PULSE 75; RESP 18; O2SAT 97
[2020-04-29] MEDS: sodium chloride 0.9% 1,000 ML 999 ML IV (19:10)
[2020-04-29 19:44] VITALS: BP 113/64; RESP 14; O2SAT 96
[2020-04-29 20:06] LABS: Protein Urine Neg (Negative); Specific Gravity, Urine 1.015 (1.005-1.030); Urine Appearance Clear (CLEAR); Urine Color Yellow (Yellow); pH Urine 5 (5-7)
[2020-04-29 20:07] LABS: Bilirubin Urine Neg (Negative); Blood Urine Neg (Negative); Glucose Urine UA Norm (Normal); Ketones Urine Negative (Negative); Leukocyte Esterase Urine Negative (Negative); Nitrate Urine Negative (Negative); Urobilinogen Urine Norm (Negative)
[2020-04-29 20:14] LABS: Alanine Aminotransferase 12 U/L (0-33); Alkaline Phosphatase 102 IU/L (35-105); Anion Gap 15.6 (5-19); Aspartate Amino Transferase 16 U/L (0-32); Blood Urea Nitrogen 13 mg/dL (8-23); Calcium 8.5 mg/dL (8.5-10.5); Carbon Dioxide 20 mmol/L (22-29); Chloride 107 mmol/L (98-107); Creatinine Clr Calc Pharmacy 51.9836; Globulin 2.6 g/dL (1.3-4.6); Glucose 110 mg/dL (65-115); Lipase 35 U/L (13-60); Osmolality Calculated 289 mOsm/kg (285-295); Potassium 3.6 mmol/L (3.5-5.1); Sodium 139 mmol/L (136-145); Total Bilirubin 0.2 mg/dL (0.15-1.2); Total Protein 6.6 g/dL (6.6-8.7)
[2020-04-29 20:20] LABS: Add Urine Culture? No; Bacteria Urine TRACE /hpf; RBC Urine 0-4 /hpf (0-2); Squamous Epithelial Cell Urine 0-4 /hpf (0-5)
[2020-04-29] MEDS: iohexol 300 mg/mL 100 mL Btl IV (20:33)
== END 2020-04-29 21:15 | disposition home or self-care (01) ==
PROVIDERS: Physician Assistant; Emergency Provider Emergency Medicine; PCP Family Medicine
DX: R10.84 Generalized abdominal pain (principal); I10 Essential (primary) hypertension; R07.9 Chest pain, unspecified; Z79.82 Long term (current) use of aspirin; I25.10 Atherosclerotic heart disease of native coronary artery without angina pectoris
CPT/HCPCS: 12345; 71045; 74177; 80053; 81001; 83690; 84484; 85025; 93005; 96360; 99282; 99284; J7030; Q9967

== ENCOUNTER → 2020-07-13 10:00 | Outpatient (BNVA) | payer MEDICARE, SELFPAY | PROVIDERS: PCP Family Medicine; Visit Provider Nurse Practitioner Family | DX: N39.0 Urinary tract infection, site not specified (principal) | CPT/HCPCS: 81000 ==

== ENCOUNTER → 2020-09-04 13:23 | Outpatient (BNVA) | payer MEDICARE, SELFPAY | PROVIDERS: PCP Family Medicine; Visit Provider Specialist | DX: H81.10 Benign paroxysmal vertigo, unspecified ear (principal); R41.3 Other amnesia; I35.0 Nonrheumatic aortic (valve) stenosis; F32.9 Major depressive disorder, single episode, unspecified; R40.0 Somnolence | CPT/HCPCS: 96116; 99205 ==

== ENCOUNTER 2020-09-20 11:17 | Outpatient (RCR) | payer MEDICARE, SELFPAY | END 2020-09-25 23:59 | disposition home or self-care (01) | LOC: SPT 11:17 | PROVIDERS: PCP Family Medicine; Referring Provider Specialist; Visit Provider Specialist | DX: R42 Dizziness and giddiness (principal) | CPT/HCPCS: 95992; 97162 ==

== ENCOUNTER 2020-09-24 20:00 | Outpatient (CLI) | payer MEDICARE, SELFPAY | END 2020-09-24 20:01 | disposition home or self-care (01) | LOC: SLEEP 09-25 08:02 | PROVIDERS: PCP Family Medicine; Visit Provider Specialist | DX: G47.30 Sleep apnea, unspecified (principal) | CPT/HCPCS: 95810 ==

== ENCOUNTER 2020-10-08 19:19 | Emergency (ER) | payer MEDICARE, SELFPAY ==
[2020-10-08 19:30] VITALS: BP 167/89; PULSE 84; RESP 16; TEMP 36.8; O2SAT 96; BMI 26.5
--- NOTE | 2020-10-08 19:37 | CTR_ITS ---
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 TECHNIQUE: Imaging protocol: Computed tomography of the abdomen and pelvis with contrast. Radiation optimization: All CT scans at this facility use at least one of these dose optimization techniques: automated exposure control; mA and/or kV adjustment per patient size (includes targeted exams where dose is matched to clinical indication); or iterative reconstruction. Contrast material: OMNI 300; Contrast volume: 95 ml; Contrast route: INTRAVENOUS (IV); COMPARISON: CT abdomen pelvis w con* [id number] 04/29/2020 8:21 PM RADIATION DOSE METRICS: Total DLP (mGy-cm): 1120.85 FINDINGS: Liver: Stable small low-attenuation lesion at the inferior right hepatic lobe tip within segment 6. Gallbladder and bile ducts: Cholecystectomy. Nondilated biliary system. Pancreas: Normal. No ductal dilation. Spleen: Normal. No splenomegaly. Adrenal glands: Normal. No mass. Kidneys and ureters: Normal. No hydronephrosis. Stomach and bowel: Severe diverticulosis coli. No inflammatory bowel wall thickening identified. Negative for obstruction. Negative for perforation. Moderate diffuse fecal volume. Appendix: Appendix not seen. Intraperitoneal space: No intraperitoneal fluid collection. No free intraperitoneal air. Vasculature: Patent mesenteric vasculature. Scattered atherosclerosis. No aneurysm. Arteries: Partial visualization of aortic valve prosthesis. Lymph nodes: Unremarkable. No enlarged lymph nodes. Urinary bladder: Unremarkable as visualized. Reproductive: Hysterectomy. Bones/joints: The lumbar spine demonstrates moderate discogenic and apophyseal joint degenerative changes at multiple levels. No fractures. Demineralized bones. Soft tissues: Unremarkable. CT/CT abdomen pelvis w con* [id number] IMPRESSION: 1. Negative for acute abdominopelvic pathology. 2. No significant change from comparison. Radiation Dose CTDIVOL = (mGy): DLP = 1120.85 (mGy-cm)
--- NOTE | 2020-10-08 19:37 | W.ED.ABDPA2 ---
HPI - Abdominal Pain General: Chief Complaint: Abdominal Pain Stated Complaint: Abdomin Pain Time Seen by Provider: 10/08/20 19:37 History of Present Illness: HPI narrative: 80-year-old female comes in today with complaints of right lower quadrant abdominal pain radiating across to the left side of her abdomen. Patient reports pain started this morning. Patient does have a history of diverticulosis but no history of diverticulitis. Patient does report some chills and just not feeling well. Patient was seen at urgent care and was referred to the ER for further evaluation and treatment. Patient states taking some Tylenol about an hour ago and her pain has improved since taking the Tylenol. Patient does report some problems with constipation and usually uses fiber with some relief of constipation and discomfort. Associated Symptoms: Reports constipation Review of Systems General: Reports: 10 or more systems reviewed and unremarkable except in HPI and below GI: Reports: abdominal pain and constipation [facility] ED PFSH: Medical History Aortic stenosis history of AVR at [facility] 02/28/19 Benign positional vertigo CAD (coronary artery disease) Cervical radiculopathy due to degenerative joint disease of spine Diverticula of colon Diverticulosis Gastritis GERD (gastroesophageal reflux disease) HTN (hypertension) UTI (urinary tract infection) Family History Father Cancer Social History Smoking and tobacco status: never smoked Alcohol intake: never Household members: spouse History of recent travel: No Physical Exam Const: COMMON NORMALS: no acute distress and patient oriented x3 GENERAL APPEARANCE: cooperative HENMT: COMMON NORMALS: normocephalic, TM's normal bilaterally and Normal external nose present HEAD & SCALP: normal to inspection and normocephalic NOSE: Normal external nose present TYMPANIC MEMBRANE: TM's normal bilaterally MOUTH: Normal oral and palatal mucosa present THROAT: posterior oropharynx normal Eye: GENERAL EYE: appearance normal, both eyes and all related structures Neck/C-Spine: COMMON NORMALS: full ROM Lymph: LYMPHATIC: no lymphadenopathy noted Chest: COMMONS NORMALS: normal inspection of the chest Resp: COMMON NORMALS: normal respiratory effort EFFORT & INSPECTION: Yes able to speak in complete sentences Cardio: COMMON NORMALS: regular rate and regular rhythm RATE: regular rate RHYTHM: regular rhythm GI: COMMON NORMALS: Soft to palpation PALPATION: Yes Soft to palpation and Yes Tenderness to palpation present (GI) (lower abd) : COMMON NORMALS: Yes no CVA tenderness BLADDER/KIDNEY EXAM: Yes no CVA tenderness Back/Pelvis: COMMON NORMALS: no CVA tenderness and thoracic and lumbar spine normal to inspection Extremity: COMMON NORMALS: normal to inspection Neuro: COMMON NORMALS: patient oriented x3 and moves all extremities Psych: COMMON NORMALS: mental status grossly normal and cooperative Skin: COMMON NORMALS: no rashes or lesions noted GENERAL SKIN EXAM: no rashes or lesions noted Course Vital Signs: Vital signs: Vital Signs Temperature 98.3 F 10/08/20 19:30 Pulse Rate 79 10/08/20 20:09 Respiratory Rate 18 10/08/20 20:09 Blood Pressure 157/83 10/08/20 20:09 Pulse Oximetry 94 10/08/20 20:09 MDM - Abdominal Pain MDM Narrative: Medical decision making narrative: Patient comes in today for complaints of right lower quadrant abdominal pain. Patient reports pain is been going on since last evening. Patient does report some constipation. Patient appears in mild pain. Patient is alert and oriented. On exam patient has some soft abdomen with some hyperactive bowel sounds and tenderness in the right lower quadrant. Skin is warm and dry vital signs are normal. Differential diagnosis includes but not limited to appendicitis, constipation, diverticulitis. CT scan of the abdomen noted no acute abdominal problem. Patient did have noticeable a large amount of diverticulosis but no sign of significant inflammation. Patient was had been given 2 mg of morphine for abdominal pain. I am going to continue patient with some cephalexin for concern of a mild diverticulitis. Patient did have large amount of stool in the ascending colon visualized on CT. Reviewed exam with patient with recommendations for use of MiraLAX for constipation. Patient reported understanding and agreed to plan. Lab Data: Labs: Lab Results 10/08/20 10/08/20 10/08/20 Range/Units 19:38 19:45 19:45 WBC 7.9 (4.0-10.0) 10^3/ uL RBC 5.04 (4.1-5.3) 10^6/u L Hgb 15.3 (11.5-15.3) g/dL Hct 46.3 (37.0-47.0) % MCV 91.9 (81-99) fL MCH 30.4 (28.0-34.0) pg MCHC 33.0 (30.0-36.0) g/dL RDW 13.5 (12.1-15.1) % Plt Count 351 (130-400) 10^3/c mm MPV 9.4 (7.4-10.4) fL Neut % (Auto) 58.0 % Lymph % (Auto) 26.9 % [place] % (Auto) 12.1 % Eos % (Auto) 1.6 % Baso % (Auto) 1.1 % Neut # (Auto) 4.57 (1.8-7.7) 10^3/u L Lymph # (Auto) 2.1 (0.8-4.8) 10^3/u L [place] # (Auto) 1.0 H (0.2-0.9) 10^3/u L Eos # (Auto) 0.1 (0.0-0.8) 10^3/u L Baso # (Auto) 0.1 (0.0-0.1) 10^3/u L Nucleated RBC % (a uto) 0 % Nucleated RBCs # 0.0 /100WBC Sodium 135 L (136-145) mmol/L Potassium 4.1 (3.5-5.1) mmol/L Chloride 99 (98-107) mmol/L Carbon Dioxide 23 (22-29) mmol/L Anion Gap 17.1 (5-19) BUN 13 (8-23) mg/dL Creatinine 0.9 (0.5-0.9) mg/dL GFR Calculation Not Reportable Glucose 117 H (65-115) mg/dL Calculated Osmolal ity 281 L (285-295) mOsm/k g Lactic Acid (0.5-2.2) mmol/L Calcium 9.4 (8.5-10.5) mg/dL Total Bilirubin 0.3 (0.15-1.2) mg/dL AST 18 (0-32) U/L ALT 16 (0-33) U/L Alkaline Phosphata se 139 H (35-105) IU/L Total Protein 7.7 (6.6-8.7) g/dL Albumin 4.8 (3.5-5.2) g/dL Globulin 2.9 (1.3-4.6) g/dL Lipase 53 (13-60) U/L Urine Color Yellow (Yellow) Urine Appearance Clear (CLEAR) Urine pH 7 (5-7) Ur Specific Gravit y 1.000 L (1.005-1.030) Urine Protein Neg (Negative) Urine Glucose (UA) Norm (Normal) Urine Ketones Negative (Negative) Urine Blood Neg (Negative) Urine Nitrate Negative (Negative) Urine Bilirubin Neg (Negative) Urine Urobilinogen Norm (Negative) mg/dL Ur Leukocyte Elizabeth ase 1+ H (Negative) Urine RBC 0-4 H (0-2) /hpf Urine WBC 0-4 H (0-5) /hpf Ur Squamous Epith Cells 0-4 H (0-5) /hpf Amorphous Sediment Not Reportable Urine Bacteria Trace (NONE) /hpf 10/08/20 Range/Units 19:45 WBC (4.0-10.0) 10^3/ uL RBC (4.1-5.3) 10^6/u L Hgb (11.5-15.3) g/dL Hct (37.0-47.0) % MCV (81-99) fL MCH (28.0-34.0) pg MCHC (30.0-36.0) g/dL RDW (12.1-15.1) % Plt Count (130-400) 10^3/c mm MPV (7.4-10.4) fL Neut % (Auto) % Lymph % (Auto) % [place] % (Auto) % Eos % (Auto) % Baso % (Auto) % Neut # (Auto) (1.8-7.7) 10^3/u L Lymph # (Auto) (0.8-4.8) 10^3/u L [place] # (Auto) (0.2-0.9) 10^3/u L Eos # (Auto) (0.0-0.8) 10^3/u L Baso # (Auto) (0.0-0.1) 10^3/u L Nucleated RBC % (a uto) % Nucleated RBCs # /100WBC Sodium (136-145) mmol/L Potassium (3.5-5.1) mmol/L Chloride (98-107) mmol/L Carbon Dioxide (22-29) mmol/L Anion Gap (5-19) BUN (8-23) mg/dL Creatinine (0.5-0.9) mg/dL GFR Calculation Glucose (65-115) mg/dL Calculated Osmolal ity (285-295) mOsm/k g Lactic Acid 1.4 (0.5-2.2) mmol/L Calcium (8.5-10.5) mg/dL Total Bilirubin (0.15-1.2) mg/dL AST (0-32) U/L ALT (0-33) U/L Alkaline Phosphata se (35-105) IU/L Total Protein (6.6-8.7) g/dL Albumin (3.5-5.2) g/dL Globulin (1.3-4.6) g/dL Lipase (13-60) U/L Urine Color (Yellow) Urine Appearance (CLEAR) Urine pH (5-7) Ur Specific Gravit y (1.005-1.030) Urine Protein (Negative) Urine Glucose (UA) (Normal) Urine Ketones (Negative) Urine Blood (Negative) Urine Nitrate (Negative) Urine Bilirubin (Negative) Urine Urobilinogen (Negative) mg/dL Ur Leukocyte Elizabeth ase (Negative) Urine RBC (0-2) /hpf Urine WBC (0-5) /hpf Ur Squamous Epith Cells (0-5) /hpf Amorphous Sediment Urine Bacteria (NONE) /hpf Discharge Plan Discharge Patient Disposition: Home Clinical Impression: Diverticulosis Abdominal pain Qualifiers: Abdominal location: right lower quadrant Qualified Code(s): R10.31 - Right lower quadrant pain Constipation Qualifiers: Constipation type: unspecified constipation type Qualified Code(s): K59.00 - Constipation, unspecified Condition: Stable Prescriptions: New cephalexin 500 mg tablet 500 mg PO TID 7 Days Qty: 21 RF: 0 Changed Miralax 17 gram powder in packet 17 g PO TID PRN (Reason: Constipation) Qty: 30 RF: 1 No Action aspirin [Adult Low Dose Aspirin] 81 mg tablet,delayed release (DR/EC) 81 mg PO DAILY@0700 RF: 0 clonidine HCl 0.1 mg tablet 0.1 mg PO TID PRN (Reason: Blood Pressure) RF: 0 omega-3 fatty acids [Fish Oil Concentrate] 1,000 mg capsule 1,000 mg PO DAILY@0700 RF: 0 coenzyme Q10 100 mg capsule 100 mg PO DAILY@0700 RF: 0 amlodipine 5 mg tablet 10 mg PO DAILY@0700 RF: 0 multivitamin [Daily Multi-Vitamin] Tablet 1 tab PO DAILY@0700 RF: 0 paroxetine HCl 10 mg tablet 10 mg PO DAILY Qty: 30 RF: 3 acetaminophen [Tylenol] 325 mg Tablet 325 mg PO QID PRN (Reason: Pain) RF: 0 psyllium Packet 1 packet PO DAILY PRN (Reason: regularity) RF: 0 losartan 50 mg tablet 50 mg PO BID RF: 0 magnesium 100 mg Tablet 100 mg PO DAILY PRN (Reason: UNKNOWN) RF: 0 Discharge Orders: Discharge ED (Routine); Ordered 10/08/20 Ordered By: Jhonathan Luna Referrals: Kuldeep Acosta MD [Primary Care Provider] - Discharge Diet: Usual diet Discharge Activity: Increase activity as tolerated Patient Instructions: Abdominal Pain (ED), Opioid Safety Activity Restrictions/Additional Instructions: Use MiraLAX 17 g up to 3 times a day for constipation. Drink at least 1-1/2 to 2 L of fluid/water daily to maintain hydration. Take cephalexin 500 mg 3 times a day for suspected mild diverticulitis. Follow-up with primary care as needed. Return to the emergency room for high fever, worsening abdominal pain, blood in vomit or stool. Coding Level of Care Code ED Senior Sharepoint Developer for Brett Fwd Exam Comprehensive
[2020-10-08 20:05] LABS: Basophils # 0.1 10^3/uL (0.0-0.1); Basophils % 1.1 %; Eosinophils # 0.1 10^3/uL (0.0-0.8); Eosinophils % 1.6 %; Hematocrit 46.3 % (37.0-47.0); Hemoglobin 15.3 g/dL (11.5-15.3); Lymphocytes # 2.1 10^3/uL (0.8-4.8); Lymphocytes % 26.9 %; Mean Corpuscular Hemoglobin 30.4 pg (28.0-34.0); Mean Corpuscular Volume 91.9 fL (81-99); Mean Platelet Volume 9.4 fL (7.4-10.4); Monocytes % 12.1 %; Neutrophils # 4.57 10^3/uL (1.8-7.7); Nucleated Red Blood Cells % 0 %; Platelet Count 351 10^3/cmm (130-400); Red Blood Count 5.04 10^6/uL (4.1-5.3); Red Cell Distribution Width 13.5 % (12.1-15.1); White Blood Count 7.9 10^3/uL (4.0-10.0)
[2020-10-08 20:09] VITALS: BP 157/83; PULSE 79; RESP 18; O2SAT 94
[2020-10-08 20:19] LABS: Alanine Aminotransferase 16 U/L (0-33); Albumin Level 4.8 g/dL (3.5-5.2); Alkaline Phosphatase 139 IU/L (35-105); Anion Gap 17.1 (5-19); Aspartate Amino Transferase 18 U/L (0-32); Blood Urea Nitrogen 13 mg/dL (8-23); Calcium 9.4 mg/dL (8.5-10.5); Carbon Dioxide 23 mmol/L (22-29); Chloride 99 mmol/L (98-107); Globulin 2.9 g/dL (1.3-4.6); Glucose 117 mg/dL (65-115); Lipase 53 U/L (13-60); Osmolality Calculated 281 mOsm/kg (285-295); Potassium 4.1 mmol/L (3.5-5.1); Sodium 135 mmol/L (136-145); Total Bilirubin 0.3 mg/dL (0.15-1.2); Total Protein 7.7 g/dL (6.6-8.7)
[2020-10-08 20:19] LABS: Add Urine Culture? No; Add Urine Microscopic? YES; Bacteria Urine TRACE /hpf; Bilirubin Urine Neg (Negative); Blood Urine Neg (Negative); Glucose Urine UA Norm (Normal); Ketones Urine Negative (Negative); Leukocyte Esterase Urine 1+ (Negative); Nitrate Urine Negative (Negative); Protein Urine Neg (Negative); RBC Urine 0-4 /hpf (0-2); Squamous Epithelial Cell Urine 0-4 /hpf (0-5); Urine Appearance Clear (CLEAR); Urine Color Yellow (Yellow); Urobilinogen Urine Norm (Negative); WBC Urine 0-4 /hpf (0-5); pH Urine 7 (5-7)
[2020-10-08 20:20] LABS: Lactic Sepsis W/Reflex 1.4 mmol/L (0.5-2.2)
[2020-10-08] MEDS: iohexol 300 mg/mL 100 mL Btl IV (20:32)
[2020-10-08 21:26] VITALS: RESP 18
[2020-10-08] MEDS: morphine 4 mg/mL SDV 1 mL 2 MG IVP (21:26)
[2020-10-08] MEDS: cephALEXin 500 mg Capsule PO (21:50)
[2020-10-08 22:18] VITALS: BP 140/80; PULSE 72; RESP 18; O2SAT 95
== END 2020-10-08 21:55 | disposition home or self-care (01) ==
PROVIDERS: Emergency Medicine; Emergency Provider Nurse Practitioner Family; PCP Family Medicine
DX: K57.92 Diverticulitis of intestine, part unspecified, without perforation or abscess without bleeding (principal); K59.00 Constipation, unspecified; Z79.82 Long term (current) use of aspirin; I25.10 Atherosclerotic heart disease of native coronary artery without angina pectoris; I10 Essential (primary) hypertension
CPT/HCPCS: 36415; 74177; 80053; 81001; 83605; 83690; 85025; 87040; 96374; 99283; J2270; Q9967

== ENCOUNTER → 2021-05-20 16:16 | Outpatient (BNVA) | payer MEDICARE, SELFPAY | PROVIDERS: PCP Family Medicine; Visit Provider Registered Nurse Neonatal Intensive Care | DX: N39.0 Urinary tract infection, site not specified (principal) | CPT/HCPCS: 81000 ==

== ENCOUNTER → 2022-02-23 11:05 | Outpatient (BNVA) | payer MEDICARE, SELFPAY | PROVIDERS: PCP Family Medicine; Visit Provider Family Medicine | DX: I10 Essential (primary) hypertension (principal); I25.119 Atherosclerotic heart disease of native coronary artery with unspecified angina pectoris | CPT/HCPCS: 80053; 80061; 85025 ==

== ENCOUNTER → 2022-03-04 16:17 | Outpatient (BNVA) | payer MEDICARE, SELFPAY | PROVIDERS: PCP Family Medicine; Visit Provider Emergency Medicine | DX: M25.572 Pain in left ankle and joints of left foot (principal) | CPT/HCPCS: 73610 ==

== ENCOUNTER → 2022-12-03 09:06 | Outpatient (BNVA) | payer MEDICARE, SELFPAY | PROVIDERS: PCP Family Medicine; Visit Provider Family Medicine | DX: N39.0 Urinary tract infection, site not specified (principal) | CPT/HCPCS: 81000 ==

== ENCOUNTER → 2023-01-07 12:19 | Outpatient (BNVA) | payer MEDICARE, SELFPAY | PROVIDERS: PCP Family Medicine; Visit Provider Emergency Medicine | DX: M79.604 Pain in right leg (principal) | CPT/HCPCS: 73552; 73590 ==

== ENCOUNTER 2023-01-07 14:34 | Emergency (ER) | payer MEDICARE, SELFPAY ==
[2023-01-07 14:38] VITALS: BP 162/76; PULSE 80; RESP 16; TEMP 36.7; O2SAT 96; BMI 25.2
[2023-01-07 17:12] VITALS: BP 141/115; PULSE 89; RESP 18; O2SAT 96
--- NOTE | 2023-01-07 17:15 | USR_ITS ---
PROCEDURE INFORMATION: Exam: US Duplex Right Lower Extremity Veins, Limited Exam date and time: 01/07/2023 5:33 PM Age: 82 years old Clinical indication: Pain; Leg, lower; Right; Additional info: Leg pain TECHNIQUE: Imaging protocol: Real-time duplex ultrasound of the right extremity with 2-D nichole scale, color Doppler flow and spectral waveform analysis including responses to compression and other maneuvers (when performed) with image documentation. Limited exam was focused on the right lower extremity veins. COMPARISON: CR XR tibia fibula RT 2V [id number] 01/07/2023 12:45 PM FINDINGS: Right deep veins: Unremarkable. The common femoral, femoral, proximal profunda femoral and popliteal veins as well as the visualized deep veins of the lower leg are patent without thrombus. Normal Doppler waveforms. Normal compressibility and/or augmentation response. Superficial veins: Unremarkable. Saphenofemoral junction is patent without thrombus. Soft tissues: Unremarkable. US/[place] [id number] IMPRESSION: No evidence of deep vein thrombosis.
[2023-01-07] MEDS: ketorolac 30 mg/mL INJ 15 MG IVP (17:51)
[2023-01-07 17:52] VITALS: BP 141/116; PULSE 79; RESP 20; O2SAT 94
[2023-01-07 18:22] LABS: Basophils # 0.1 10^3/uL (0.0-0.1); Basophils % 0.8 %; Eosinophils % 0.4 %; Hematocrit 46.8 % (36-47); Lymphocytes # 2.3 10^3/uL (0.8-4.8); Lymphocytes % 32.9 %; Mean Corpuscular HGB Conc 34.4 g/dL (30-55); Mean Platelet Volume 8.9 fL (7.4-10.4); Monocytes # 0.8 10^3/uL (0.2-0.9); Monocytes % 10.6 %; Neutrophils # 3.89 10^3/uL (1.8-7.7); Nucleated Red Blood Cells % 0 %; Platelet Count 343 10^3/cmm (157-399); Red Cell Distribution Width 13.2 % (12.1-15.1); White Blood Count 7.08 10^3/uL (3.29-11.43)
[2023-01-07 18:29] LABS: Alanine Aminotransferase 16 U/L (0-33); Albumin Level 4.7 g/dL (3.5-5.2); Alkaline Phosphatase 110 U/L (35-105); Aspartate Amino Transferase 18 U/L (0-32); Blood Urea Nitrogen 14 mg/dL (8-23); Calcium 9.1 mg/dL (8.5-10.5); Carbon Dioxide 23 mmol/L (22-29); Chloride 95 mmol/L (98-107); Globulin 3.1 g/dL (1.3-4.6); Glucose 104 mg/dL (65-115); Magnesium 2.6 mg/dL (1.7-2.3); Osmolality Calculated 273 mOsm/kg (285-295); Sodium 131 mmol/L (136-145); Total Bilirubin 0.4 mg/dL (0.15-1.2); Total Protein 7.8 g/dL (6.6-8.7)
[2023-01-07 20:41] VITALS: BP 147/79; PULSE 73; RESP 16; O2SAT 94
--- NOTE | 2023-01-07 22:38 | W.ED.EXTPRO ---
HPI - Extremity Problem General: Chief complaint: Extremity Problem,Nontraumatic Stated complaint: right leg pain Time Seen by Provider: 01/07/23 17:10 History of Present Illness: 82-year-old female presents emergency room with right leg pain for the past weeks. Patient was initially seen and evaluated by primary physician for similar complaint and was told that she has arthritis. Patient's pain persisted and worsening within the past few days and patient described the pain as aching sensation mostly diffusely along the right leg. Patient denies any numbness or tingling. [place] any rash or lesion. No injury or direct fall. Patient was seen and evaluated today at a different hospital and was sent to this hospital for ultrasound to rule out blood clot. Patient denies any notable swelling or history of DVTs in the past. Review of Systems General: Reports: 10 or more systems reviewed and unremarkable except in HPI and below Resp: Denies: dyspnea, productive cough, non-productive cough, wheezing or stridor GI: Denies: abdominal pain, nausea, vomiting, hematemesis, coffee ground emesis or dysphagia Musc: Reports: extremity pain and muscle cramps; Denies: extremity swelling, joint pain, joint swelling, joint redness, muscle weakness or decrease in muscle mass PFSH ED PFSH: Medical History (Updated 01/07/23 @ 20:16 by Nate Costa MD) Aortic stenosis history of AVR at [facility] 02/28/19 Benign positional vertigo CAD (coronary artery disease) Cervical radiculopathy due to degenerative joint disease of spine Diverticul disease small and large intestine, no perforati or abscess Diverticula of colon Diverticulosis Gastritis GERD (gastroesophageal reflux disease) HTN (hypertension) UTI (urinary tract infection) Surgical History S/P AVR (aortic valve replacement) Family History Father Cancer Social History Smoking and tobacco/nicotine status: former use of tobacco/nicotine Alcohol intake: never Substance/Drug Use: never Household members: spouse Physical Exam Extremity: GENERAL: No AV fistula, No calf tenderness, No carpopedal spasm, No clubbing, No cyanosis, No deformity, No hypertrophy, No mottling, No pallor, No palpable cord, No pulses abnormal and No weight-bearing difficulty OTHER: Right leg with diffuse tenderness upon palpation no visible rash or lesion. No palpable cords lesion. Patient with intact sensation along the entire leg. Patient has a brisk capillary refills. Have a strong pulse. Course Vital Signs: Vital signs: Vital Signs Temperature 98.0 F 01/07/23 14:38 Pulse Rate 73 01/07/23 20:41 Respiratory Rate 16 01/07/23 20:41 Blood Pressure 147/79 01/07/23 20:41 Pulse Oximetry 94 01/07/23 20:41 Oxygen Delivery Me thod Room Air 01/07/23 17:52 MDM - Extremity (Nontraumatic) Medical Decision Making Patient was made comfortable emergency room patient extensive work-up done including CBC, CMP, lower extremity Doppler. Patient given maintained strong lower extremity pulses. Patient did improve with current medication and treatment. Close follow-up PCP recommended for further evaluation and treatment. Discussed patient with daughter. Differential Diagnosis Likely herpes zoster, cellulitis, superficial thrombophlebitis, deep venous thrombosis of upper extremity, lower extremity edema and deep vein thrombosis of lower extremity Lab Data 01/07/23 17:47 01/07/23 17:47 Radiology Impressions Venous Duplex 01/07/23 17:15 IMPRESSION: No evidence of deep vein thrombosis. Laboratory Results WBC 7.08 10^3/uL (3.29-11.43) 01/07/23 17:47 RBC 5.20 10^6/uL (3.85-5.65) 01/07/23 17:47 Hgb 16.10 g/dL (11.27-16.99) 01/07/23 17:47 Hct 46.8 % (36-47) 01/07/23 17:47 MCV 90.0 fl (85-98) 01/07/23 17:47 MCH 31.0 pg (27-33) 01/07/23 17:47 MCHC 34.4 g/dL (30-55) 01/07/23 17:47 RDW 13.2 % (12.1-15.1) 01/07/23 17:47 Plt Count 343 10^3/cmm (157-399) 01/07/23 17:47 MPV 8.9 fL (7.4-10.4) 01/07/23 17:47 Neut % (Auto) 55.0 % 01/07/23 17:47 Lymph % (Auto) 32.9 % 01/07/23 17:47 [place] % (Auto) 10.6 % 01/07/23 17:47 Eos % (Auto) 0.4 % 01/07/23 17:47 Baso % (Auto) 0.8 % 01/07/23 17:47 Neut # (Auto) 3.89 10^3/uL (1.8-7.7) 01/07/23 17:47 Lymph # (Auto) 2.3 10^3/uL (0.8-4.8) 01/07/23 17:47 [place] # (Auto) 0.8 10^3/uL (0.2-0.9) 01/07/23 17:47 Eos # (Auto) 0.0 10^3/uL (0.0-0.8) 01/07/23 17:47 Baso # (Auto) 0.1 10^3/uL (0.0-0.1) 01/07/23 17:47 Nucleated RBC % (auto) 0 % 01/07/23 17:47 Nucleated RBCs # 0.0 /100WBC 01/07/23 17:47 Sodium 131 mmol/L (136-145) L 01/07/23 17:47 Potassium 4.0 mmol/L (3.5-5.1) 01/07/23 17:47 Chloride 95 mmol/L (98-107) L 01/07/23 17:47 Carbon Dioxide 23 mmol/L (22-29) 01/07/23 17:47 Anion Gap 17.0 (5-19) 01/07/23 17:47 BUN 14 mg/dL (8-23) 01/07/23 17:47 Creatinine 0.8 mg/dL (0.5-0.9) 01/07/23 17:47 GFR Calculation Not Reportable 01/07/23 17:47 Glucose 104 mg/dL (65-115) 01/07/23 17:47 Calculated Osmolality 273 mOsm/kg (285-295) L 01/07/23 17:47 Calcium 9.1 mg/dL (8.5-10.5) 01/07/23 17:47 Magnesium 2.6 mg/dL (1.7-2.3) H 01/07/23 17:47 Total Bilirubin 0.4 mg/dL (0.15-1.2) 01/07/23 17:47 AST 18 U/L (0-32) 01/07/23 17:47 ALT 16 U/L (0-33) 01/07/23 17:47 Alkaline Phosphatase 110 U/L (35-105) H 01/07/23 17:47 Total Protein 7.8 g/dL (6.6-8.7) 01/07/23 17:47 Albumin 4.7 g/dL (3.5-5.2) 01/07/23 17:47 Globulin 3.1 g/dL (1.3-4.6) 01/07/23 17:47 XR interpretation done by ED provider, pending radiology final review Discharge Plan Discharge Patient Disposition: Home Clinical Impression: Acute leg pain, Sciatic leg pain Condition: Stable Prescriptions: New gabapentin 100 mg capsule 100 mg PO BID Qty: 20 0RF No Action clonidine HCl 0.1 mg tablet 0.1 mg PO BID PRN (Reason: hypertensive emergency) Qty: 60 3RF aspirin [Adult Low Dose Aspirin] 81 mg tablet,delayed release (DR/EC) 81 mg PO DAILY@0700 omega-3 fatty acids [Fish Oil Concentrate] 1,000 mg capsule 1,000 mg PO DAILY@0700 coenzyme Q10 100 mg capsule 100 mg PO DAILY@0700 multivitamin [Daily Multi-Vitamin] Tablet 1 tab PO DAILY@0700 amlodipine 5 mg tablet 5 mg PO BID Qty: 180 3RF losartan 50 mg tablet 50 mg PO QAM Qty: 90 3RF amoxicillin-pot clavulanate 875-125 mg tablet 1 tab PO BID 10 Days Qty: 20 0RF ondansetron 4 mg tablet,disintegrating 4 mg PO Q6H PRN (Reason: nausea and vomiting) Qty: 12 0RF Rx Instructions: 340b please nitroglycerin 0.4 mg tablet, sublingual 0.4 mg sublingual Q5M PRN (Reason: chest pain) Qty: 30 1RF Rx Instructions: do not exceed 3 doses per episode acetaminophen [Tylenol] 325 mg Tablet 325 mg PO QID PRN (Reason: Pain) Miralax 17 gram powder in packet 17 g PO TID PRN (Reason: Constipation) Qty: 30 1RF Rx Instructions: for better bowel movements magnesium 100 mg tablet 100 mg PO DIRECTED PRN (Reason: UNKNOWN) Rx Instructions: Calcium/Magnesium Discharge Orders: Discharge ED (Routine); Ordered 01/07/23 Ordered By: Nate Costa Referrals: Kuldeep Acosta MD [Primary Care Provider] - Discharge Diet: Advance as tolerated Discharge Activity: Resume usual activity Patient Instructions: Opioid Safety, Pain Management Coding Level of Care Code ED Nursing Support Worker for Brett Aj
== END 2023-01-07 20:43 | disposition home or self-care (01) ==
PROVIDERS: Emergency Provider Family Medicine; PCP Family Medicine
DX: M54.31 Sciatica, right side (principal); Z79.82 Long term (current) use of aspirin; I25.10 Atherosclerotic heart disease of native coronary artery without angina pectoris; I10 Essential (primary) hypertension; Z87.891 Personal history of nicotine dependence; M79.604 Pain in right leg
CPT/HCPCS: 73552; 73590; 80053; 83735; 85025; 93971; 96374; 99284; J1885

== ENCOUNTER → 2023-02-04 14:55 | Outpatient (BNVA) | payer MEDICARE, SELFPAY | PROVIDERS: PCP Family Medicine; Visit Provider Nurse Practitioner Family | DX: R39.9 Unspecified symptoms and signs involving the genitourinary system (principal) | CPT/HCPCS: 81000 ==

== ENCOUNTER → 2023-09-20 11:17 | Outpatient (BNVA) | payer MEDICARE, SELFPAY | PROVIDERS: PCP Family Medicine; Visit Provider Family Medicine | DX: N39.0 Urinary tract infection, site not specified (principal) | CPT/HCPCS: 81000 ==

== ENCOUNTER → 2024-01-10 11:43 | Outpatient (BNVA) | payer MEDICARE, SELFPAY | PROVIDERS: PCP Family Medicine; Visit Provider Family Medicine | DX: I10 Essential (primary) hypertension (principal) | CPT/HCPCS: 80053; 85025 ==

== ENCOUNTER → 2024-05-29 11:06 | Outpatient (BNVA) | payer MEDICARE, SELFPAY | PROVIDERS: PCP Family Medicine; Visit Provider Family Medicine | DX: F32.9 Major depressive disorder, single episode, unspecified (principal); E03.9 Hypothyroidism, unspecified; E83.42 Hypomagnesemia; Z95.2 Presence of prosthetic heart valve; K21.9 Gastro-esophageal reflux disease without esophagitis; I10 Essential (primary) hypertension | CPT/HCPCS: 80053; 83735; 84443; 85025 ==